=== PATIENT | male | born 1970 | race Caucasian/White ===

== ENCOUNTER → 2016-12-22 | Outpatient (CLI) | payer MEDICAID ==
[~2016-12-22] MED LIST: CIPR500T87 PO; DAPT500V6 IV; FAMO20TA7 PO; FERR325T20 PO; FOLI-17 PO; Folic Acid PO; GABA100C8 PO; HYDR-3138 PO; LEVO500T33 PO; LISI-167 PO; LISI2.5T PO; LORA1TAB PO; METF500T4 PO; METO25TA35 PO; METO50TA82 PO; METR500T4 PO; MULT-484 PO; MULT1TAB76 PO; ONDA-39 PO; POLY17PO5 PO; SUCR1TAB26 PO; SULF1TAB24 PO; THIA100T6 PO
== END | disposition home or self-care (01) ==
LOC: WOUND 08:00
PROVIDERS: ATTEND Internal Medicine
DX: E11.622 Type 2 diabetes mellitus with other skin ulcer (principal); L97.821 Non-pressure chronic ulcer of other part of left lower leg limited to breakdown of skin; I10 Essential (primary) hypertension; E11.40 Type 2 diabetes mellitus with diabetic neuropathy, unspecified; E11.22 Type 2 diabetes mellitus with diabetic chronic kidney disease; I12.9 Hypertensive chronic kidney disease with stage 1 through stage 4 chronic kidney disease, or unspecified chronic kidney disease; N18.9 Chronic kidney disease, unspecified; E11.69 Type 2 diabetes mellitus with other specified complication; M86.8X7 Other osteomyelitis, ankle and foot; K21.9 Gastro-esophageal reflux disease without esophagitis; Z87.891 Personal history of nicotine dependence; F10.10 Alcohol abuse, uncomplicated
CPT/HCPCS: 97597

== ENCOUNTER 2016-12-25 13:22 | Inpatient (IN) | payer MEDICAID ==
[~2016-12-25] VITALS: Ht 160 cm; Wt 72.4 kg
[2016-12-25] MEDS ORDERED: SODIUM CHLORIDE 0.9% 1,000 ML IV ONE (13:36)
[2016-12-25] MEDS ORDERED: SODIUM CHLORIDE FLUSH 10ML SYR IVF ONE (14:00)
[2016-12-25] MEDS ORDERED: SODIUM CHLORIDE 0.9% 1,000ML IVBOLUS ONE ×2 (14:00→15:00)
[2016-12-25 14:33] LABS: ASPARTATE AMINO TRANSFERASE 63 U/L (15-37); BLOOD UREA NITROGEN 48 mg/dL (7-18)
[2016-12-25 14:41] LABS: IS PT STATUS REG ER OR PRE ER? YES
[2016-12-25 14:46] LABS: HEMOGLOBIN 7.6 g/dL (13.7-18.0)
[2016-12-25 14:47] LABS: DIFF TOTAL CELLS COUNTED 100 CELL DIFF
[2016-12-25 14:49] LABS: ANISOCYTOSIS 1+; VERIFY COUNTS? YES
[2016-12-25 14:50] LABS: POLYCHROMASIA 1+
[2016-12-25 14:52] LABS: ECHINOCYTES 1+
[2016-12-25] MEDS ORDERED: SODIUM BICARB 8.4%, 50ML SYRINGE ONE (14:53)
[2016-12-25] MEDS ORDERED: SODIUM BICARB 8.4%, 50ML SYRINGE IVPush ONE (15:00)
[2016-12-25 15:32] LABS: PH, VENOUS 7.095 pH (7.320-7.420)
[2016-12-25] MEDS ORDERED: DOCUSATE 100 MG CAPSULE PO PRN (16:00)
[2016-12-25] MEDS ORDERED: POLYETHYLENE GLYCOL 17 GM PACKET PO PRN (16:00)
[2016-12-25] MEDS ORDERED: TEMAZEPAM 15 MG CAPSULE PO PRN (16:00)
[2016-12-25] MEDS ORDERED: ACETAMINOPHEN 325 MG TABLET PO PRN (16:00)
[2016-12-25] MEDS ORDERED: MORPHINE SULFATE 4 MG/ML, 1ML IVPush PRN (16:00)
[2016-12-25] MEDS: INSULIN REGULAR 100 UNITS/ML, 3ML VIAL SQ-INSULIN SCH ×2 (16:00→21:34)
[2016-12-25] MEDS ORDERED: ONDANSETRON 2MG/ML, 2ML IVP PRN (16:00)
[2016-12-25] MEDS: NOREPINEPHRINE 4 MG in SODIUM CHLORIDE 0.9% 246 ML IV PRN ×3 (16:41→17:21)
[2016-12-25 16:45] VITALS: BP 74/38
[2016-12-25 17:00] VITALS: BP 88/49
[2016-12-25] MEDS ORDERED: CEFAZOLIN PMX 1GM/50ML 50 ML IV ONE (17:00)
[2016-12-25] MEDS ORDERED: CEFAZOLIN PMX 1GM/50ML 50 ML ONE (17:10)
[2016-12-25 17:30] LABS: IS PT STATUS REG ER OR PRE ER? YES
[2016-12-25 18:00] VITALS: BP 97/56
[2016-12-25] MEDS: SODIUM BICARB 8.4%,50ML SYR. 150 MEQ in SODIUM CHLORIDE 0.45% 1,000 ML IV SCH (18:24)
[2016-12-25 18:26] VITALS: BP 97/49
[2016-12-25 18:44] VITALS: BP 90/47
[2016-12-25] MEDS: PIPERACILLIN/TAZO/PMX 2.25GM 50 ML IV SCH (18:48)
[2016-12-25] MEDS: HEPARIN 5,000 UNITS/ML, 1ML SQ SCH (19:38)
[2016-12-25] MEDS: LINEZOLID PMX 600MG/300ML 300 ML IV SCH (19:38)
[2016-12-25 20:02] VITALS: BP 98/45
[2016-12-25 23:42] LABS: IS PT STATUS REG ER OR PRE ER? NO
[2016-12-26] MEDS: PIPERACILLIN/TAZO/PMX 2.25GM 50 ML IV SCH ×4 (00:07→17:48)
[2016-12-26] MEDS: SODIUM BICARB 8.4%,50ML SYR. 150 MEQ in SODIUM CHLORIDE 0.45% 1,000 ML IV SCH ×2 (02:08→17:44)
[2016-12-26 04:00] VITALS: BP 107/60
[2016-12-26] MEDS: NOREPINEPHRINE 4 MG in SODIUM CHLORIDE 0.9% 246 ML IV PRN ×2 (04:23→21:13)
[2016-12-26] MEDS: HEPARIN 5,000 UNITS/ML, 1ML SQ SCH ×3 (04:24→19:45)
[2016-12-26 04:38] LABS: HEMOGLOBIN 9.3 g/dL (13.7-18.0)
[2016-12-26 04:52] LABS: BLOOD UREA NITROGEN 49 mg/dL (7-18)
[2016-12-26 04:56] LABS: ASPARTATE AMINO TRANSFERASE 96 U/L (15-37)
[2016-12-26 04:57] LABS: DIFF TOTAL CELLS COUNTED 100 CELL DIFF
[2016-12-26 05:14] LABS: ANISOCYTOSIS 1+; POIKILOCYTOSIS 1+; VERIFY COUNTS? YES
[2016-12-26 05:15] LABS: POLYCHROMASIA 1+
[2016-12-26] MEDS: LINEZOLID PMX 600MG/300ML 300 ML IV SCH ×2 (07:00→19:45)
[2016-12-26] MEDS: INSULIN REGULAR 100 UNITS/ML, 3ML VIAL SQ-INSULIN SCH ×4 (07:00→21:11)
[2016-12-26] MEDS ORDERED: CALCIUM CHLORIDE 13.6 MEQ in SODIUM CHLORIDE 0.9% 100 ML IV ONE (07:30)
[2016-12-26] MEDS: PANTOPRAZOLE 40 MG IV IVP SCH (09:00)
[2016-12-26] MEDS: LEVOTHYROXINE 100 MCG INJ IVPush SCH (09:00)
[2016-12-26 13:14] LABS: OCCBLD OBC PASS
[2016-12-26 22:32] LABS: HEMOGLOBIN 8.5 g/dL (13.7-18.0)
[2016-12-27] MEDS: PIPERACILLIN/TAZO/PMX 2.25GM 50 ML IV SCH ×4 (00:28→18:08)
[2016-12-27] MEDS: SODIUM BICARB 8.4%,50ML SYR. 150 MEQ in SODIUM CHLORIDE 0.45% 1,000 ML IV SCH ×2 (01:13→03:20)
[2016-12-27 04:00] VITALS: BP 115/73
[2016-12-27] MEDS: HEPARIN 5,000 UNITS/ML, 1ML SQ SCH ×2 (04:12→12:00)
[2016-12-27 05:42] LABS: HEMOGLOBIN 8.5 g/dL (13.7-18.0)
[2016-12-27] MEDS: LINEZOLID PMX 600MG/300ML 300 ML IV SCH ×2 (06:41→19:55)
[2016-12-27] MEDS: PANTOPRAZOLE 40 MG IV IVP SCH (07:30)
[2016-12-27] MEDS: INSULIN REGULAR 100 UNITS/ML, 3ML VIAL SQ-INSULIN SCH ×4 (07:42→19:55)
[2016-12-27 08:17] LABS: BLOOD UREA NITROGEN 19 mg/dL (7-18)
[2016-12-27 08:21] LABS: ASPARTATE AMINO TRANSFERASE 74 U/L (15-37); TOTAL IRON BINDING CAPACITY 197 mcg/dL (250-450)
[2016-12-27] MEDS ORDERED: MAGNESIUM SULFATE PMX 4GM/100M 100 ML IV ONE (09:00)
[2016-12-27] MEDS ORDERED: POTASSIUM CHLORIDE 20 MEQ TAB.ER.PRT PO ONE (09:00)
[2016-12-27] MEDS ORDERED: POTASSIUM PHOSPHATE 44 MEQ in SODIUM CHLORIDE 0.9% 500 ML IV ONE (09:00)
[2016-12-27] MEDS: SODIUM CHLORIDE 0.9% 1,000 ML IV SCH (09:10)
[2016-12-27] MEDS: LEVOTHYROXINE 100 MCG INJ IVPush SCH (09:12)
[2016-12-27] MEDS ORDERED: CHOLESTYRAMINE 4GM PACKET PO PRN (11:00)
[2016-12-27 11:49] LABS: HEMOGLOBIN 8.4 g/dL (13.7-18.0)
[2016-12-27] MEDS: PANCRELIPASE 24,000 CAPSULE.DR PO SCH (18:32)
[2016-12-27] MEDS: FAMOTIDINE 20 MG/2 ML IVPush SCH (19:58)
[2016-12-27] MEDS: CHOLESTYRAMINE 4GM PACKET PO PRN (22:34)
[2016-12-28] MEDS: SODIUM CHLORIDE 0.9% 1,000 ML IV SCH ×4 (00:14→23:46)
[2016-12-28] MEDS: PIPERACILLIN/TAZO/PMX 2.25GM 50 ML IV SCH ×5 (00:15→23:45)
[2016-12-28 05:14] LABS: HEMOGLOBIN 7.9 g/dL (13.7-18.0)
[2016-12-28 05:23] LABS: ASPARTATE AMINO TRANSFERASE 55 U/L (15-37); BLOOD UREA NITROGEN 24 mg/dL (7-18)
[2016-12-28] MEDS: LINEZOLID PMX 600MG/300ML 300 ML IV SCH (07:53)
[2016-12-28] MEDS: FAMOTIDINE 20 MG/2 ML IVPush SCH (07:53)
[2016-12-28] MEDS: PANCRELIPASE 24,000 CAPSULE.DR PO SCH ×3 (07:54→17:05)
[2016-12-28] MEDS: LEVOTHYROXINE 100 MCG INJ IVPush SCH (07:54)
[2016-12-28] MEDS: INSULIN REGULAR 100 UNITS/ML, 3ML VIAL SQ-INSULIN SCH ×4 (07:54→21:00)
[2016-12-28 11:26] LABS: HEP B SURF. AB < 3.1 mIU/mL (0.0-10.0)
[2016-12-28] MEDS: POTASSIUM CHLORIDE 20 MEQ TAB.ER.PRT PO SCH ×2 (12:18→17:05)
[2016-12-28] MEDS: NEUTRA PHOS K 250 MG TABLET PO SCH ×3 (12:18→22:50)
[2016-12-28] MEDS: CHOLESTYRAMINE 4GM PACKET PO PRN (14:03)
[2016-12-28] MEDS: OXYcodone IR 5MG TABLET PO PRN (23:42)
[2016-12-29] MEDS: PIPERACILLIN/TAZO/PMX 2.25GM 50 ML IV SCH ×3 (05:44→20:28)
[2016-12-29 06:33] LABS: ASPARTATE AMINO TRANSFERASE 47 U/L (15-37); BLOOD UREA NITROGEN 28 mg/dL (7-18)
[2016-12-29 06:49] LABS: HEMOGLOBIN 8.3 g/dL (13.7-18.0)
[2016-12-29] MEDS: INSULIN REGULAR 100 UNITS/ML, 3ML VIAL SQ-INSULIN SCH ×4 (07:00→20:37)
[2016-12-29] MEDS: NEUTRA PHOS K 250 MG TABLET PO SCH ×2 (08:40→20:34)
[2016-12-29] MEDS: LEVOTHYROXINE 100 MCG TABLET PO SCH (08:41)
[2016-12-29] MEDS: POTASSIUM CHLORIDE 20 MEQ TAB.ER.PRT PO SCH ×2 (08:41→17:31)
[2016-12-29] MEDS: PANCRELIPASE 24,000 CAPSULE.DR PO SCH ×3 (08:41→17:31)
[2016-12-29] MEDS: SODIUM CHLORIDE 0.9% 1,000 ML IV SCH (08:42)
[2016-12-29] MEDS: FAMOTIDINE 20 MG/2 ML IVPush SCH (08:42)
[2016-12-29] MEDS: SODIUM BICARBONATE 8.4% 75 MEQ in SODIUM CHLORIDE 0.45% 1,000 ML IV SCH ×2 (11:49→22:18)
[2016-12-30] MEDS: PIPERACILLIN/TAZO/PMX 2.25GM 50 ML IV SCH ×4 (01:30→20:01)
[2016-12-30 03:30] LABS: ASPARTATE AMINO TRANSFERASE 41 U/L (15-37); BLOOD UREA NITROGEN 31 mg/dL (7-18)
[2016-12-30 03:32] LABS: HEMOGLOBIN 7.8 g/dL (13.7-18.0)
[2016-12-30 04:00] VITALS: BP 105/53
[2016-12-30] MEDS: LEVOTHYROXINE 100 MCG TABLET PO SCH (06:15)
[2016-12-30] MEDS: INSULIN REGULAR 100 UNITS/ML, 3ML VIAL SQ-INSULIN SCH ×4 (06:16→21:00)
[2016-12-30] MEDS: NEUTRA PHOS K 250 MG TABLET PO SCH ×2 (08:08→20:59)
[2016-12-30] MEDS: PANCRELIPASE 24,000 CAPSULE.DR PO SCH ×3 (08:08→18:03)
[2016-12-30] MEDS: POTASSIUM CHLORIDE 20 MEQ TAB.ER.PRT PO SCH ×2 (08:09→18:03)
[2016-12-30] MEDS: FAMOTIDINE 20 MG/2 ML IVPush SCH (08:09)
[2016-12-30] MEDS: SODIUM BICARBONATE 8.4% 75 MEQ in SODIUM CHLORIDE 0.45% 1,000 ML IV SCH ×2 (09:03→21:58)
[2016-12-30] MEDS: OXYcodone IR 5MG TABLET PO PRN ×2 (09:30→15:53)
[2016-12-31] MEDS: PIPERACILLIN/TAZO/PMX 2.25GM 50 ML IV SCH ×4 (01:53→19:58)
[2016-12-31 03:37] LABS: BLOOD UREA NITROGEN 19 mg/dL (7-18)
[2016-12-31 04:00] VITALS: BP 93/66
[2016-12-31] MEDS: LEVOTHYROXINE 100 MCG TABLET PO SCH (06:37)
[2016-12-31] MEDS: INSULIN REGULAR 100 UNITS/ML, 3ML VIAL SQ-INSULIN SCH ×4 (07:00→20:32)
[2016-12-31] MEDS: PANTOPRAZOLE 40 MG IV IVP SCH (07:30)
[2016-12-31] MEDS: NEUTRA PHOS K 250 MG TABLET PO SCH ×2 (11:48→20:32)
[2016-12-31] MEDS: PANCRELIPASE 24,000 CAPSULE.DR PO SCH ×3 (11:48→17:00)
[2016-12-31] MEDS: POTASSIUM CHLORIDE 20 MEQ TAB.ER.PRT PO SCH ×2 (11:48→17:11)
[2016-12-31] MEDS: SODIUM BICARBONATE 8.4% 75 MEQ in SODIUM CHLORIDE 0.45% 1,000 ML IV SCH (19:59)
[2017-01-01] VITALS (10 sets, daily range): BP systolic 102–128; BP diastolic 64–84
[2017-01-01] MEDS: PIPERACILLIN/TAZO/PMX 2.25GM 50 ML IV SCH ×3 (02:58→15:38)
[2017-01-01 05:48] LABS: ASPARTATE AMINO TRANSFERASE 42 U/L (15-37); BLOOD UREA NITROGEN 25 mg/dL (7-18)
[2017-01-01] MEDS: INSULIN REGULAR 100 UNITS/ML, 3ML VIAL SQ-INSULIN SCH ×4 (06:15→19:59)
[2017-01-01] MEDS: LEVOTHYROXINE 100 MCG TABLET PO SCH (06:26)
[2017-01-01] MEDS: PANCRELIPASE 24,000 CAPSULE.DR PO SCH ×3 (08:00→17:00)
[2017-01-01] MEDS: PANTOPRAZOLE 40 MG IV IVP SCH (08:11)
[2017-01-01] MEDS: CHOLESTYRAMINE 4GM PACKET PO PRN (08:12)
[2017-01-01] MEDS: POTASSIUM CHLORIDE 20 MEQ TAB.ER.PRT PO SCH ×2 (08:14→18:06)
[2017-01-01] MEDS: NEUTRA PHOS K 250 MG TABLET PO SCH ×2 (08:14→23:25)
[2017-01-01 12:41] LABS: ASPARTATE AMINO TRANSFERASE 39 U/L (15-37); BLOOD UREA NITROGEN 21 mg/dL (7-18)
[2017-01-01 12:45] LABS: IS PT STATUS REG ER OR PRE ER? NO
[2017-01-01 12:51] LABS: HEMOGLOBIN 6.6 g/dL (13.7-18.0)
[2017-01-01 12:57] LABS: DIFF TOTAL CELLS COUNTED 100 CELL DIFF
[2017-01-01 12:59] LABS: ANISOCYTOSIS 1+; HYPOCHROMIA 2+; VERIFY COUNTS? YES
[2017-01-01 13:00] LABS: POIKILOCYTOSIS 2+
[2017-01-01 13:01] LABS: OVALOCYTES 1+
[2017-01-01] MEDS ORDERED: IRON DEXTRAN COMPLEX 25 MG in SODIUM CHLORIDE 0.9% 50 ML IV ONE (17:00)
[2017-01-01] MEDS ORDERED: IRON DEXTRAN IV PER PHARMACY IV PRN (17:00)
[2017-01-01] MEDS ORDERED: EPINEPHRINE 1 MG/ML, 1ML IM PRN (17:00)
[2017-01-01] MEDS ORDERED: IRON DEXTRAN COMPLEX 1,700 MG in SODIUM CHLORIDE 0.9% 250 ML IV ONE (17:30)
[2017-01-01 19:18] LABS: PROTIME 14.3 Seconds (9.6-11.5)
[2017-01-02 01:04] VITALS: BP 132/86
[2017-01-02] MEDS: LEVOTHYROXINE 100 MCG TABLET PO SCH (05:41)
[2017-01-02 06:04] LABS: BLOOD UREA NITROGEN 26 mg/dL (7-18)
[2017-01-02 06:07] LABS: HEMOGLOBIN 8.1 g/dL (13.7-18.0)
[2017-01-02 06:27] LABS: ASPARTATE AMINO TRANSFERASE 37 U/L (15-37); TOTAL IRON BINDING CAPACITY 438 mcg/dL (250-450)
[2017-01-02] MEDS: INSULIN REGULAR 100 UNITS/ML, 3ML VIAL SQ-INSULIN SCH ×4 (07:00→20:57)
[2017-01-02 07:58] VITALS: BP 117/80
[2017-01-02] MEDS: PANCRELIPASE 24,000 CAPSULE.DR PO SCH ×3 (08:00→16:45)
[2017-01-02] MEDS: POTASSIUM CHLORIDE 20 MEQ TAB.ER.PRT PO SCH ×2 (08:32→16:46)
[2017-01-02] MEDS ORDERED: FAMOTIDINE 20 MG/2 ML IVPush SCH (09:00)
[2017-01-02] MEDS: ERGOCALCIFEROL 50,000 UNIT CAPSULE PO SCH (09:59)
[2017-01-02 15:17] VITALS: BP 111/72
[2017-01-02] MEDS: OXYcodone IR 5MG TABLET PO PRN (16:51)
[2017-01-02 19:02] VITALS: BP 125/77
[2017-01-03 01:19] VITALS: BP 123/78
[2017-01-03] MEDS: LEVOTHYROXINE 100 MCG TABLET PO SCH (04:53)
[2017-01-03 05:27] LABS: HEMOGLOBIN 8.2 g/dL (13.7-18.0)
[2017-01-03 05:33] LABS: BLOOD UREA NITROGEN 29 mg/dL (7-18)
[2017-01-03 05:39] LABS: ASPARTATE AMINO TRANSFERASE 41 U/L (15-37)
[2017-01-03] MEDS: INSULIN REGULAR 100 UNITS/ML, 3ML VIAL SQ-INSULIN SCH ×4 (07:00→21:00)
[2017-01-03 07:19] VITALS: BP 121/80
[2017-01-03] MEDS: PANCRELIPASE 24,000 CAPSULE.DR PO SCH ×3 (07:58→17:42)
[2017-01-03] MEDS: POTASSIUM CHLORIDE 20 MEQ TAB.ER.PRT PO SCH ×2 (07:58→17:38)
[2017-01-03] MEDS: ALBUMIN HUMAN 25% 100 ML IV PRN (15:02)
[2017-01-03] MEDS: CHOLESTYRAMINE 4GM PACKET PO SCH ×2 (17:41→23:00)
[2017-01-03] MEDS ORDERED: LOPERAMIDE 2 MG CAPSULE PO ONE (18:00)
[2017-01-03 19:24] VITALS: BP 116/78
[2017-01-04 01:40] VITALS: BP 107/65
[2017-01-04] MEDS: CHOLESTYRAMINE 4GM PACKET PO SCH ×4 (05:00→22:46)
[2017-01-04] MEDS: LEVOTHYROXINE 100 MCG TABLET PO SCH (05:07)
[2017-01-04 05:34] LABS: HEMOGLOBIN 7.7 g/dL (13.7-18.0)
[2017-01-04 05:55] LABS: ASPARTATE AMINO TRANSFERASE 36 U/L (15-37); BLOOD UREA NITROGEN 25 mg/dL (7-18)
[2017-01-04 06:46] VITALS: BP 110/69
[2017-01-04] MEDS: INSULIN REGULAR 100 UNITS/ML, 3ML VIAL SQ-INSULIN SCH ×4 (07:00→21:00)
[2017-01-04] MEDS: PANCRELIPASE 24,000 CAPSULE.DR PO SCH ×3 (08:03→16:42)
[2017-01-04] MEDS: POTASSIUM CHLORIDE 20 MEQ TAB.ER.PRT PO SCH ×2 (08:03→16:40)
[2017-01-04] MEDS ORDERED: LORazepam 2 MG/ML, 1ML IVPush ONE (10:30)
[2017-01-04] MEDS: CIMETIDINE 200 MG TABLET PO SCH ×2 (11:12→22:46)
[2017-01-04 19:40] VITALS: BP 111/70
[2017-01-05 01:38] VITALS: BP 100/66
[2017-01-05] MEDS: LEVOTHYROXINE 100 MCG TABLET PO SCH (04:38)
[2017-01-05] MEDS: CHOLESTYRAMINE 4GM PACKET PO SCH ×4 (04:38→23:00)
[2017-01-05 05:05] LABS: HEMOGLOBIN 7.4 g/dL (13.7-18.0)
[2017-01-05 05:12] LABS: BLOOD UREA NITROGEN 25 mg/dL (7-18)
[2017-01-05] MEDS: INSULIN REGULAR 100 UNITS/ML, 3ML VIAL SQ-INSULIN SCH ×4 (07:00→21:00)
[2017-01-05 07:27] VITALS: BP 113/70
[2017-01-05] MEDS: PANCRELIPASE 24,000 CAPSULE.DR PO SCH ×3 (08:00→17:00)
[2017-01-05] MEDS: POTASSIUM CHLORIDE 20 MEQ TAB.ER.PRT PO SCH ×2 (09:29→17:03)
[2017-01-05 12:12] LABS: CREATININE CLEARANCE,URINE 4.5 (70.0-140.0)
[2017-01-05] MEDS: FUROSEMIDE 40 MG TABLET PO SCH (17:03)
[2017-01-05] MEDS: LORazepam 2 MG/ML, 1ML IVPush PRN (20:17)
[2017-01-05] MEDS: OXYcodone IR 5MG TABLET PO PRN (20:22)
[2017-01-05] MEDS: ALBUMIN HUMAN 25% 100 ML IV PRN ×2 (20:46→21:37)
[2017-01-05] MEDS: SODIUM BICARBONATE 650 MG TABLET PO SCH (23:32)
[2017-01-06] VITALS (9 sets, daily range): BP systolic 109–133; BP diastolic 66–86
[2017-01-06 04:10] LABS: HEMOGLOBIN 6.9 g/dL (13.7-18.0)
[2017-01-06 04:19] LABS: BLOOD UREA NITROGEN 17 mg/dL (7-18)
[2017-01-06] MEDS: CHOLESTYRAMINE 4GM PACKET PO SCH ×4 (05:00→23:00)
[2017-01-06] MEDS: LEVOTHYROXINE 100 MCG TABLET PO SCH (05:56)
[2017-01-06] MEDS: INSULIN REGULAR 100 UNITS/ML, 3ML VIAL SQ-INSULIN SCH ×4 (07:00→20:47)
[2017-01-06] MEDS: PANCRELIPASE 24,000 CAPSULE.DR PO SCH ×3 (08:00→16:35)
[2017-01-06] MEDS: POTASSIUM CHLORIDE 20 MEQ TAB.ER.PRT PO SCH ×2 (08:28→16:35)
[2017-01-06] MEDS: FUROSEMIDE 40 MG TABLET PO SCH ×2 (08:28→16:35)
[2017-01-06] MEDS: SODIUM BICARBONATE 650 MG TABLET PO SCH ×2 (08:28→20:53)
[2017-01-06] MEDS ORDERED: ALPRazolam 1MG TABLET PO PRN ×2 (12:00)
[2017-01-07] MEDS: CHOLESTYRAMINE 4GM PACKET PO SCH ×4 (05:00→23:02)
[2017-01-07] MEDS: LEVOTHYROXINE 100 MCG TABLET PO SCH (06:12)
[2017-01-07 06:14] VITALS: BP 118/76
[2017-01-07 06:21] LABS: HEMOGLOBIN 8.4 g/dL (13.7-18.0)
[2017-01-07 06:31] LABS: BLOOD UREA NITROGEN 21 mg/dL (7-18)
[2017-01-07] MEDS ORDERED: HEPARIN 1,000 UNITS/ML, 10ML ONE (06:36)
[2017-01-07] MEDS ORDERED: BUPIVACAINE/PF-EPI 0.5% 1:200K ONE (06:37)
[2017-01-07] MEDS ORDERED: FENTANYL PF 100 MCG/2ML ONE (06:53)
[2017-01-07] MEDS ORDERED: PROPOFOL 10 MG/ML, 20ML ONE (06:59)
[2017-01-07] MEDS ORDERED: ONDANSETRON 2MG/ML, 2ML ONE (06:59)
[2017-01-07] MEDS ORDERED: PHENYLEPHRINE 10 MG/ML ONE (06:59)
[2017-01-07] MEDS ORDERED: DEXAMETHASONE 4 MG/ML, 1ML ONE (06:59)
[2017-01-07] MEDS ORDERED: HEPARIN 1,000 UNITS/ML, 10ML IV ONE (07:00)
[2017-01-07] MEDS ORDERED: BUPIVACAINE/PF-EPI 0.5% 1:200K INFIL ONE (07:00)
[2017-01-07] MEDS: INSULIN REGULAR 100 UNITS/ML, 3ML VIAL SQ-INSULIN SCH ×4 (07:00→23:01)
[2017-01-07] MEDS ORDERED: OXYcodone 5 MG/5 ML ORAL.SOL UDC PO PRN (07:30)
[2017-01-07] MEDS ORDERED: hydrALAzine 20 MG/ML, 1ML IV PRN (07:30)
[2017-01-07] MEDS ORDERED: FENTANYL PF 100 MCG/2ML IV PRN (07:30)
[2017-01-07] MEDS ORDERED: HYDROmorphone 1 MG/ML, 1ML IV PRN (07:30)
[2017-01-07] MEDS ORDERED: PROMETHAZINE 25 MG/ML, 1ML IV PRN (07:30)
[2017-01-07] MEDS ORDERED: ALBUTEROL SULFATE 2.5 MG/3 ML NPPB PRN (07:30)
[2017-01-07] MEDS ORDERED: LABETALOL 5MG/ML, 20ML IV PRN (07:30)
[2017-01-07] MEDS ORDERED: ONDANSETRON 2MG/ML, 2ML IVPush PRN (07:30)
[2017-01-07] MEDS: PANCRELIPASE 24,000 CAPSULE.DR PO SCH ×3 (08:00→16:18)
[2017-01-07] MEDS: FUROSEMIDE 40 MG TABLET PO SCH ×2 (10:45→16:18)
[2017-01-07] MEDS: POTASSIUM CHLORIDE 20 MEQ TAB.ER.PRT PO SCH ×2 (10:45→16:18)
[2017-01-07] MEDS ORDERED: [UNRECOGNIZED DRUG - REMARK] MC PRN (11:00)
[2017-01-07] MEDS ORDERED: DIPHENHYDRAMINE 25 MG CAPSULE PO PRN (11:00)
[2017-01-07 12:34] VITALS: BP 122/84
[2017-01-07] MEDS: DIPHENHYDRAMINE 25 MG CAPSULE PO PRN ×2 (14:23→23:41)
[2017-01-07] MEDS: OXYcodone IR 5MG TABLET PO PRN (15:13)
[2017-01-07] MEDS: LORazepam 2 MG/ML, 1ML IVPush PRN (16:17)
[2017-01-07] MEDS ORDERED: CATHFLO-ALTEPLASE 2 MG/2 ML CATHFLUSH ONE (18:30)
[2017-01-07 20:17] VITALS: BP 124/83
[2017-01-07] MEDS: SODIUM BICARBONATE 650 MG TABLET PO SCH (23:02)
[2017-01-08 00:18] VITALS: BP 126/81
[2017-01-08] MEDS: CHOLESTYRAMINE 4GM PACKET PO SCH ×4 (05:00→22:17)
[2017-01-08] MEDS: LEVOTHYROXINE 100 MCG TABLET PO SCH (05:22)
[2017-01-08 06:10] LABS: ASPARTATE AMINO TRANSFERASE 34 U/L (15-37); BLOOD UREA NITROGEN 14 mg/dL (7-18)
[2017-01-08 06:28] LABS: HEMOGLOBIN 8.3 g/dL (13.7-18.0)
[2017-01-08] MEDS: INSULIN REGULAR 100 UNITS/ML, 3ML VIAL SQ-INSULIN SCH ×4 (07:00→22:18)
[2017-01-08 07:28] VITALS: BP_SYST 120; BP_SYST 130; BP_DIAS 76
[2017-01-08] MEDS: FUROSEMIDE 40 MG TABLET PO SCH ×2 (08:00→17:00)
[2017-01-08] MEDS: PANCRELIPASE 24,000 CAPSULE.DR PO SCH ×3 (08:00→17:00)
[2017-01-08] MEDS: POTASSIUM CHLORIDE 20 MEQ TAB.ER.PRT PO SCH ×2 (10:12→17:13)
[2017-01-08] MEDS: SODIUM BICARBONATE 650 MG TABLET PO SCH ×2 (10:12→22:18)
[2017-01-08] MEDS: IRON SUCROSE COMPLEX 100MG/5ML IV SCH (10:12)
[2017-01-08] MEDS: DIPHENHYDRAMINE 25 MG CAPSULE PO PRN ×3 (10:12→22:16)
[2017-01-08 10:37] LABS: HEPATITIS C VIRUS ANTIBODY Nonreactive (Nonreactive)
[2017-01-08] MEDS: LORazepam 2 MG/ML, 1ML IVPush PRN (13:06)
[2017-01-08] MEDS: ALBUMIN HUMAN 25% 100 ML IV PRN (14:33)
[2017-01-08] MEDS: DIPHENOXYLATE/ATROPINE TABLET PO PRN (17:13)
[2017-01-08 19:19] VITALS: BP 104/62
[2017-01-09 03:22] VITALS: BP 117/65
[2017-01-09 03:48] LABS: BLOOD UREA NITROGEN 8 mg/dL (7-18)
[2017-01-09 03:54] LABS: HEMOGLOBIN 7.4 g/dL (13.7-18.0)
[2017-01-09] MEDS: CHOLESTYRAMINE 4GM PACKET PO SCH ×4 (05:24→23:21)
[2017-01-09] MEDS: LEVOTHYROXINE 100 MCG TABLET PO SCH (05:24)
[2017-01-09] MEDS: INSULIN REGULAR 100 UNITS/ML, 3ML VIAL SQ-INSULIN SCH ×4 (07:00→20:48)
[2017-01-09] MEDS: FUROSEMIDE 40 MG TABLET PO SCH ×2 (07:57→16:49)
[2017-01-09] MEDS: SODIUM BICARBONATE 650 MG TABLET PO SCH ×2 (07:57→21:11)
[2017-01-09] MEDS: PANCRELIPASE 24,000 CAPSULE.DR PO SCH ×3 (07:57→16:49)
[2017-01-09] MEDS: ERGOCALCIFEROL 50,000 UNIT CAPSULE PO SCH (07:58)
[2017-01-09] MEDS: POTASSIUM CHLORIDE 20 MEQ TAB.ER.PRT PO SCH ×2 (07:58→16:49)
[2017-01-09] MEDS: IRON SUCROSE COMPLEX 100MG/5ML IV SCH (07:59)
[2017-01-09] MEDS: OXYcodone IR 5MG TABLET PO PRN (08:08)
[2017-01-09 08:22] VITALS: BP 124/74
[2017-01-09 13:53] VITALS: BP 116/76
[2017-01-09] MEDS: DIPHENHYDRAMINE 25 MG CAPSULE PO PRN (17:23)
[2017-01-09 19:50] VITALS: BP 131/78
[2017-01-10] MEDS: DIPHENOXYLATE/ATROPINE TABLET PO PRN (00:20)
[2017-01-10] MEDS: DIPHENHYDRAMINE 25 MG CAPSULE PO PRN (00:20)
[2017-01-10] MEDS: LEVOTHYROXINE 100 MCG TABLET PO SCH (04:36)
[2017-01-10] MEDS: CHOLESTYRAMINE 4GM PACKET PO SCH (04:36)
[2017-01-10 04:38] VITALS: BP 120/78
[2017-01-10 06:00] LABS: BLOOD UREA NITROGEN 14 mg/dL (7-18)
[2017-01-10 06:03] LABS: HEMOGLOBIN 7.4 g/dL (13.7-18.0)
[2017-01-10] MEDS: INSULIN REGULAR 100 UNITS/ML, 3ML VIAL SQ-INSULIN SCH ×2 (07:00→11:00)
[2017-01-10 07:32] VITALS: BP 120/72
[2017-01-10] MEDS: FUROSEMIDE 40 MG TABLET PO SCH ×2 (08:00→17:00)
[2017-01-10] MEDS: PANCRELIPASE 24,000 CAPSULE.DR PO SCH ×3 (08:00→17:00)
[2017-01-10] MEDS: SODIUM BICARBONATE 650 MG TABLET PO SCH ×2 (08:03→21:00)
[2017-01-10] MEDS: POTASSIUM CHLORIDE 20 MEQ TAB.ER.PRT PO SCH ×2 (08:03→17:34)
[2017-01-10] MEDS: IRON SUCROSE COMPLEX 100MG/5ML IV SCH (08:05)
[2017-01-10] MEDS ORDERED: DIPHENOXYLATE/ATROPINE TABLET PO SCH (10:00)
[2017-01-10] MEDS ORDERED: MORPHINE SULFATE 4 MG/ML, 1ML IVPush PRN (10:00)
[2017-01-10] MEDS: DIPHENOXYLATE/ATROPINE TABLET PO SCH ×3 (12:08→21:00)
[2017-01-10 14:10] VITALS: BP 132/85
[2017-01-10 19:17] VITALS: BP 137/83
[2017-01-11 00:45] VITALS: BP 116/71
[2017-01-11] MEDS: LEVOTHYROXINE 100 MCG TABLET PO SCH (05:16)
[2017-01-11 07:35] VITALS: BP 113/70
[2017-01-11] MEDS: PANCRELIPASE 24,000 CAPSULE.DR PO SCH ×3 (08:00→17:00)
[2017-01-11] MEDS: FUROSEMIDE 40 MG TABLET PO SCH ×2 (08:00→17:00)
[2017-01-11] MEDS: SODIUM BICARBONATE 650 MG TABLET PO SCH ×2 (09:18→21:12)
[2017-01-11] MEDS: POTASSIUM CHLORIDE 20 MEQ TAB.ER.PRT PO SCH ×2 (09:18→18:13)
[2017-01-11] MEDS: DIPHENOXYLATE/ATROPINE TABLET PO SCH ×3 (09:18→21:13)
[2017-01-11 12:35] VITALS: BP 121/82
[2017-01-11] MEDS: DIPHENHYDRAMINE 25 MG CAPSULE PO PRN (13:06)
[2017-01-11] MEDS: ALBUMIN HUMAN 25% 100 ML IV PRN (13:24)
[2017-01-11] MEDS: ALBUMIN HUMAN 25% 50 ML IV PRN ×2 (14:20→15:35)
[2017-01-11 18:44] VITALS: BP 97/53
[2017-01-12 02:26] VITALS: BP 104/64
[2017-01-12] MEDS: DIPHENHYDRAMINE 25 MG CAPSULE PO PRN ×3 (02:36→21:00)
[2017-01-12 03:40] LABS: ASPARTATE AMINO TRANSFERASE 43 U/L (15-37); BLOOD UREA NITROGEN 10 mg/dL (7-18)
[2017-01-12 03:46] LABS: HEMOGLOBIN 7.3 g/dL (13.7-18.0)
[2017-01-12 07:50] VITALS: BP 101/61
[2017-01-12] MEDS: PANCRELIPASE 24,000 CAPSULE.DR PO SCH ×3 (08:00→17:00)
[2017-01-12] MEDS: FUROSEMIDE 40 MG TABLET PO SCH ×2 (08:00→17:00)
[2017-01-12] MEDS: LEVOTHYROXINE 100 MCG TABLET PO SCH (09:54)
[2017-01-12] MEDS: DIPHENOXYLATE/ATROPINE TABLET PO SCH ×3 (09:54→21:01)
[2017-01-12] MEDS: POTASSIUM CHLORIDE 20 MEQ TAB.ER.PRT PO SCH (09:54)
[2017-01-12] MEDS: SODIUM BICARBONATE 650 MG TABLET PO SCH ×2 (09:55→21:01)
[2017-01-12 14:45] VITALS: BP 129/78
[2017-01-12 20:32] VITALS: BP 127/83
[2017-01-13 02:04] VITALS: BP 125/80
[2017-01-13] MEDS: LEVOTHYROXINE 100 MCG TABLET PO SCH (05:31)
[2017-01-13 05:55] LABS: HEMOGLOBIN 7.4 g/dL (13.7-18.0)
[2017-01-13 06:05] LABS: BLOOD UREA NITROGEN 16 mg/dL (7-18)
[2017-01-13 06:24] LABS: DIFF TOTAL CELLS COUNTED 100 CELL DIFF
[2017-01-13 06:30] LABS: ANISOCYTOSIS 2+; HYPOCHROMIA 1+; OVALOCYTES 1+; POIKILOCYTOSIS 1+; VERIFY COUNTS? YES
[2017-01-13] MEDS: PANCRELIPASE 24,000 CAPSULE.DR PO SCH ×2 (08:00→12:00)
[2017-01-13] MEDS: FUROSEMIDE 40 MG TABLET PO SCH (08:57)
[2017-01-13] MEDS: DIPHENOXYLATE/ATROPINE TABLET PO SCH (08:57)
[2017-01-13] MEDS: SODIUM BICARBONATE 650 MG TABLET PO SCH (08:58)
[2017-01-13 09:31] VITALS: BP 108/70
[2017-01-13] MEDS: DIPHENHYDRAMINE 25 MG CAPSULE PO PRN (12:02)
[2017-01-13 12:40] VITALS: BP 124/77
[2017-01-13] MEDS ORDERED: ERGO500017 PO (16:28)
[2017-01-13] MEDS ORDERED: SODI650T PO (16:28)
[2017-01-13] MEDS ORDERED: FURO40TA6 PO (16:28)
[2017-01-13] MEDS ORDERED: LIPA1CAP6 PO (16:28)
[2017-01-13] MEDS ORDERED: LEVO100T PO (16:28)
== END 2017-01-13 17:53 | disposition home or self-care (01) | DRG 871 ==
LOC: ED 15:59 → EDIP 16:01 → ED 16:10 → CCU 17:36 → 4WST 01-01 10:03
PROVIDERS: ADMIT Internal Medicine; ATTEND Internal Medicine
PROC: 30233N1 Transfusion of Nonautologous Red Blood Cells into Peripheral Vein, Percutaneous Approach (ICD-10-PCS; 2016-12-25)
PROC: 02HV33Z Insertion of Infusion Device into Superior Vena Cava, Percutaneous Approach (ICD-10-PCS; 2016-12-25)
PROC: B548ZZA Ultrasonography of Superior Vena Cava, Guidance (ICD-10-PCS; 2016-12-25)
PROC: 02HV33Z Insertion of Infusion Device into Superior Vena Cava, Percutaneous Approach (ICD-10-PCS; principal; 2016-12-26)
PROC: B5181ZA Fluoroscopy of Superior Vena Cava using Low Osmolar Contrast, Guidance (ICD-10-PCS; 2016-12-26)
PROC: B548ZZA Ultrasonography of Superior Vena Cava, Guidance (ICD-10-PCS; 2016-12-26)
PROC: 0T9B70Z Drainage of Bladder with Drainage Device, Via Natural or Artificial Opening (ICD-10-PCS; 2016-12-26)
PROC: 5A1D60Z (ICD-10-PCS; 2016-12-30)
PROC: 30233R1 Transfusion of Nonautologous Platelets into Peripheral Vein, Percutaneous Approach (ICD-10-PCS; 2017-01-01)
PROC: 02HV33Z Insertion of Infusion Device into Superior Vena Cava, Percutaneous Approach (ICD-10-PCS; 2017-01-07)
PROC: B5181ZA Fluoroscopy of Superior Vena Cava using Low Osmolar Contrast, Guidance (ICD-10-PCS; 2017-01-07)
PROC: B548ZZA Ultrasonography of Superior Vena Cava, Guidance (ICD-10-PCS; 2017-01-07)
DX: A41.9 Sepsis, unspecified organism (principal); R65.21 Severe sepsis with septic shock; E43 Unspecified severe protein-calorie malnutrition; N17.0 Acute kidney failure with tubular necrosis; N18.6 End stage renal disease; D68.9 Coagulation defect, unspecified; E87.1 Hypo-osmolality and hyponatremia; N39.0 Urinary tract infection, site not specified; L97.929 Non-pressure chronic ulcer of unspecified part of left lower leg with unspecified severity; I12.0 Hypertensive chronic kidney disease with stage 5 chronic kidney disease or end stage renal disease; B96.20 Unspecified Escherichia coli [E. coli] as the cause of diseases classified elsewhere; D63.8 Anemia in other chronic diseases classified elsewhere; D50.9 Iron deficiency anemia, unspecified; K21.9 Gastro-esophageal reflux disease without esophagitis; D69.6 Thrombocytopenia, unspecified; E11.65 Type 2 diabetes mellitus with hyperglycemia; E11.22 Type 2 diabetes mellitus with diabetic chronic kidney disease; E11.42 Type 2 diabetes mellitus with diabetic polyneuropathy; E86.0 Dehydration; E86.1 Hypovolemia; E87.5 Hyperkalemia; E83.39 Other disorders of phosphorus metabolism; E83.42 Hypomagnesemia; E87.6 Hypokalemia; E03.9 Hypothyroidism, unspecified; F10.20 Alcohol dependence, uncomplicated; F41.9 Anxiety disorder, unspecified; K74.60 Unspecified cirrhosis of liver; K72.90 Hepatic failure, unspecified without coma; L29.9 Pruritus, unspecified; F41.0 Panic disorder [episodic paroxysmal anxiety]; R16.1 Splenomegaly, not elsewhere classified; T68.XXXA Hypothermia, initial encounter; K70.10 Alcoholic hepatitis without ascites; R29.6 Repeated falls; N50.89 Other specified disorders of the male genital organs; T38.3X5A Adverse effect of insulin and oral hypoglycemic [antidiabetic] drugs, initial encounter; Y92.89 Other specified places as the place of occurrence of the external cause; Z87.01 Personal history of pneumonia (recurrent); Z99.2 Dependence on renal dialysis; Z89.512 Acquired absence of left leg below knee; Z89.431 Acquired absence of right foot; Z86.14 Personal history of Methicillin resistant Staphylococcus aureus infection; Z91.19 Patient's noncompliance with other medical treatment and regimen; Z72.0 Tobacco use; Z71.41 Alcohol abuse counseling and surveillance of alcoholic; Z79.899 Other long term (current) drug therapy; Z79.84 Long term (current) use of oral hypoglycemic drugs; Z83.3 Family history of diabetes mellitus; Z82.49 Family history of ischemic heart disease and other diseases of the circulatory system; Z68.28 Body mass index [BMI] 28.0-28.9, adult
CPT/HCPCS: 36415; 36556; 71010; 74000; 76937; 77001; 80048; 80053; 80069; 80074; 81001; 81050; 82010; 82272; 82306; 82436; 82533; 82550; 82570; 82575; 82705; 82728; 82803; 82962; 83540; 83550; 83605; 83735; 83970; 84100; 84132; 84133; 84156; 84300; 84439; 84443; 84481; 84484; 84550; 85014; 85018; 85025; 85049; 85379; 85384; 85610; 85730; 86022; 86480; 86704; 86706; 86850; 86900; 86923; 87040; 87077; 87081; 87086; 87186; 87324; 87340; 93005; 96361; 96374; J0690; J1100; J1644; J1750; J1756; J1815; J2020; J2405; J2543; J2704; J2997; J3010; P9047; C1751; C9113; J1642; J2060; J2370; J3475; J7030; J7040; J7050; P9016; P9035; Q0163; S0028

== ENCOUNTER → 2016-12-29 | Outpatient (CLI) | payer MEDICAID ==
[~2016-12-29] MED LIST changes: +ASPI500T4 PO; +ATOR80TA75 PO; +ERGO500017 PO; +FURO40TA6 PO; +GABA-826 PO; -GABA100C8 PO; +GABAPENTIN; +LEVO100T PO; +LIPA1CAP61 PO; +METF500T27 PO; +SODI650T PO; +SUCRALFATE
== END ==
LOC: WOUND 07:59
PROVIDERS: ATTEND Internal Medicine
DX: Z02.9 Encounter for administrative examinations, unspecified (principal)

== ENCOUNTER 2017-01-18 16:47 | Inpatient (IN) | payer MEDICAID ==
[~2017-01-18] VITALS: Ht 165.1 cm; Wt 92.3 kg
[~2017-01-18 16:47] MED LIST changes: -ASPI500T4 PO; -ATOR80TA75 PO; -GABA-826 PO; +GABA100C8 PO; -GABAPENTIN; +LIPA1CAP6 PO; -LIPA1CAP61 PO; -METF500T27 PO; -SUCRALFATE
[2017-01-18] MEDS ORDERED: SODIUM CHLORIDE 0.9%, 500ML IVBOLUS ONE ×2 (17:00→18:00)
[2017-01-18] MEDS ORDERED: ACETAMINOPHEN 500 MG TABLET PO ONE (17:00)
[2017-01-18] MEDS ORDERED: SODIUM CHLORIDE FLUSH 10ML SYR IVF ONE (17:00)
[2017-01-18] MEDS ORDERED: ACETAMINOPHEN 500 MG TABLET ONE (17:20)
[2017-01-18] MEDS ORDERED: SUCRALFATE (17:21)
[2017-01-18] MEDS ORDERED: GABAPENTIN (17:21)
[2017-01-18] MEDS ORDERED: METO50TA82 PO (17:21)
[2017-01-18] MEDS ORDERED: METF500T27 PO (17:21)
[2017-01-18] MEDS ORDERED: GABA100C8 PO (17:21)
[2017-01-18] MEDS ORDERED: ATOR80TA75 PO (17:21)
[2017-01-18] MEDS ORDERED: LISI-167 PO (17:21)
[2017-01-18] MEDS ORDERED: ASPI500T4 PO (17:22)
[2017-01-18] MEDS ORDERED: AMPICILLIN/SULBACTAM 3 GM in SODIUM CHLORIDE 0.9% 100 ML IV ONE (17:30)
[2017-01-18 17:33] LABS: ABG COLLECTION SITE LEFT RADIAL; COLLATERAL CIRCULATION TESTING NORMAL
[2017-01-18 17:47] LABS: ASPARTATE AMINO TRANSFERASE 170 U/L (15-37); BLOOD UREA NITROGEN 25 mg/dL (7-18)
[2017-01-18 17:51] LABS: IS PT STATUS REG ER OR PRE ER? YES
[2017-01-18 17:58] LABS: DIFF TOTAL CELLS COUNTED 100 CELL DIFF
[2017-01-18 18:02] LABS: ANISOCYTOSIS 2+; VERIFY COUNTS? YES
[2017-01-18] MEDS ORDERED: NOREPINEPHRINE 4 MG in SODIUM CHLORIDE 0.9% 246 ML IV STA (18:03)
[2017-01-18 18:04] LABS: SCHISTOCYTES 1+; SPHEROCYTES 1+
[2017-01-18] MEDS: NOREPINEPHRINE 4 MG in SODIUM CHLORIDE 0.9% 246 ML IV PRN ×3 (18:18→23:47)
[2017-01-18] MEDS ORDERED: PHARMACOKINETIC CONSULTATION MC ONE ×3 (18:30→20:30)
[2017-01-18] MEDS ORDERED: PHARMACOKINETIC MONITORING MC PRN ×2 (18:30→20:00)
[2017-01-18] MEDS ORDERED: VANCOMYCIN PMX 1GM/200ML 200 ML IV ONE ×2 (18:30→19:30)
[2017-01-18] MEDS ORDERED: VANCOMYCIN PER PHARMACY MC PRN ×2 (18:30→19:30)
[2017-01-18] MEDS ORDERED: SODIUM CHLORIDE 0.9% 1,000ML IVBOLUS ONE ×2 (19:00→22:30)
[2017-01-18] MEDS ORDERED: POLYETHYLENE GLYCOL 17 GM PACKET PO PRN (19:30)
[2017-01-18] MEDS ORDERED: BISACODYL 10 MG SUPP PR PRN (19:30)
[2017-01-18] MEDS ORDERED: OXYcodone IR 5MG TABLET PO PRN (19:30)
[2017-01-18] MEDS ORDERED: ONDANSETRON 2MG/ML, 2ML IVP PRN (19:30)
[2017-01-18] MEDS ORDERED: PIPERACILLIN/TAZO/PMX 2.25GM 50 ML IV SCH (19:30)
[2017-01-18] MEDS ORDERED: DOCUSATE 100 MG CAPSULE PO PRN (19:30)
[2017-01-18] MEDS ORDERED: ONDANSETRON 4 MG TABLET PO PRN (20:00)
[2017-01-18] MEDS: GABAPENTIN 100 MG CAPSULE PO SCH (20:31)
[2017-01-18] MEDS: SODIUM BICARBONATE 650 MG TABLET PO SCH (20:32)
[2017-01-18] MEDS: LORazepam 1MG TABLET PO PRN (21:17)
[2017-01-18] MEDS: PIPERACILLIN/TAZO/PMX 2.25GM 50 ML IV SCH (21:17)
[2017-01-18] MEDS: MORPHINE SULFATE 4 MG/ML, 1ML IVPush PRN (21:18)
[2017-01-18] MEDS: ATORVASTATIN 80 MG TABLET PO SCH (23:47)
[2017-01-19] MEDS ORDERED: PROPOFOL 10 MG/ML, 100ML IV ONE
[2017-01-19] MEDS ORDERED: MIDAZOLAM 1 MG/ML, 5ML ONE
[2017-01-19] MEDS ORDERED: ETOMIDATE 40 MG/20 ML ONE
[2017-01-19 02:12] LABS: IS PT STATUS REG ER OR PRE ER? NO
[2017-01-19] MEDS: ALBUTEROL/IPRATROPIUM 2.5MG/0.5MG, 3 ML NPPB SCH ×6 (02:30→21:57)
[2017-01-19] MEDS ORDERED: ALBUTEROL/IPRATROPIUM 2.5MG/0.5MG, 3 ML NPPB PRN (02:30)
[2017-01-19] MEDS ORDERED: PHENYLEPHRINE 10 MG in SODIUM CHLORIDE 0.9% 249 ML IV PRN ×2 (02:30→12:30)
[2017-01-19 02:43] LABS: BLOOD UREA NITROGEN 27 mg/dL (7-18)
[2017-01-19] MEDS ORDERED: ALBUTEROL/IPRATROPIUM 2.5MG/0.5MG, 3 ML INLINE PRN (03:00)
[2017-01-19] MEDS ORDERED: LACTULOSE 20 GM/30 ML UDC NG PRN (03:00)
[2017-01-19] MEDS ORDERED: ETOMIDATE 20 MG/10 ML IVPush ONE (03:00)
[2017-01-19] MEDS ORDERED: DEXTROSE 50%, 50ML SYRINGE IVPush PRN (03:00)
[2017-01-19] MEDS ORDERED: PHARMACY MAY ADJ FOR RENAL FX MC SCH (03:00)
[2017-01-19] MEDS ORDERED: GLUCAGON 1 MG IM PRN (03:00)
[2017-01-19] MEDS ORDERED: MIDAZOLAM 1 MG/ML, 5ML IVPush ONE (03:00)
[2017-01-19] MEDS: SODIUM CHLORIDE 0.9% 1,000 ML IV SCH ×2 (03:07→23:07)
[2017-01-19] MEDS ORDERED: SODIUM BICARBONATE 1 MEQ/ML, 50ML VIAL IVPush ONE (03:30)
[2017-01-19 04:35] LABS: BLOOD UREA NITROGEN 28 mg/dL (7-18)
[2017-01-19 04:40] LABS: ASPARTATE AMINO TRANSFERASE 149 U/L (15-37)
[2017-01-19 04:52] LABS: DIFF TOTAL CELLS COUNTED 100 CELL DIFF
[2017-01-19 04:55] LABS: ANISOCYTOSIS 1+; VERIFY COUNTS? YES
[2017-01-19 04:56] LABS: OVALOCYTES 1+; POIKILOCYTOSIS 1+; SCHISTOCYTES 1+
[2017-01-19] MEDS: PROPOFOL 100 ML IV PRN ×3 (05:49→23:06)
[2017-01-19] MEDS: LEVOTHYROXINE 100 MCG TABLET PO SCH (05:57)
[2017-01-19 06:06] LABS: ABG COLLECTION SITE RIGHT RADIAL; COLLATERAL CIRCULATION TESTING NORMAL
[2017-01-19] MEDS: NOREPINEPHRINE 4 MG in SODIUM CHLORIDE 0.9% 246 ML IV PRN (06:16)
[2017-01-19] MEDS ORDERED: FERROUS SULFATE 325 MG TABLET PO SCH (08:00)
[2017-01-19 08:19] LABS: IS PT STATUS REG ER OR PRE ER? NO
[2017-01-19] MEDS: PIPERACILLIN/TAZO/PMX 2.25GM 50 ML IV SCH ×2 (09:07→20:35)
[2017-01-19] MEDS: PANTOPRAZOLE 40 MG IV IVP SCH (09:07)
[2017-01-19] MEDS: FOLIC ACID 1 MG TABLET PO SCH (09:07)
[2017-01-19] MEDS: FERROUS SULFATE 220 MG/5 ML ORAL SOL PO SCH ×3 (09:07→17:51)
[2017-01-19] MEDS: THIAMINE 100MG TABLET PO SCH (09:08)
[2017-01-19] MEDS: SODIUM CHLORIDE FLUSH 10ML SYR IVF SCH ×2 (09:08→20:35)
[2017-01-19] MEDS: SODIUM BICARBONATE 650 MG TABLET PO SCH ×2 (09:08→20:36)
[2017-01-19] MEDS: GABAPENTIN 100 MG CAPSULE PO SCH ×3 (09:08→20:36)
[2017-01-19] MEDS: PANCRELIPASE 24,000 CAPSULE.DR PO SCH ×3 (09:08→17:51)
[2017-01-19] MEDS: MULTIVITS,STRESS FORMULA 1 TABLET PO SCH (09:08)
[2017-01-19] MEDS: PHENYLEPHRINE 20 MG in SODIUM CHLORIDE 0.9% 248 ML IV PRN (10:02)
[2017-01-19] MEDS: NOREPINEPHRINE 8 MG in SODIUM CHLORIDE 0.9% 242 ML IV PRN ×2 (12:41→20:34)
[2017-01-19] MEDS: DARBEPOETIN 100 MCG/ML SQ SCH (12:45)
[2017-01-19] MEDS: ATORVASTATIN 80 MG TABLET PO SCH (20:36)
[2017-01-19] MEDS: MORPHINE SULFATE 4 MG/ML, 1ML IVPush PRN (21:04)
[2017-01-20] MEDS: ALBUTEROL/IPRATROPIUM 2.5MG/0.5MG, 3 ML NPPB SCH ×6 (02:44→22:00)
[2017-01-20 04:30] LABS: ABG COLLECTION SITE RIGHT RADIAL; COLLATERAL CIRCULATION TESTING NORMAL
[2017-01-20 05:19] LABS: BLOOD UREA NITROGEN 15 mg/dL (7-18)
[2017-01-20] MEDS: LEVOTHYROXINE 100 MCG TABLET PO SCH (06:11)
[2017-01-20 06:36] LABS: DIFF TOTAL CELLS COUNTED 100 CELL DIFF
[2017-01-20 06:39] LABS: ANISOCYTOSIS 1+; OVALOCYTES 1+; POIKILOCYTOSIS 1+; POLYCHROMASIA 1+; VERIFY COUNTS? YES
[2017-01-20 06:40] LABS: SCHISTOCYTES 1+
[2017-01-20] MEDS: NOREPINEPHRINE 8 MG in SODIUM CHLORIDE 0.9% 242 ML IV PRN ×2 (06:49→20:09)
[2017-01-20] MEDS: PANCRELIPASE 24,000 CAPSULE.DR PO SCH ×3 (08:00→16:08)
[2017-01-20] MEDS: THIAMINE 100MG TABLET PO SCH (08:52)
[2017-01-20] MEDS: PANTOPRAZOLE 40 MG IV IVP SCH (08:52)
[2017-01-20] MEDS: FERROUS SULFATE 220 MG/5 ML ORAL SOL PO SCH ×3 (08:52→16:08)
[2017-01-20] MEDS: FOLIC ACID 1 MG TABLET PO SCH (08:53)
[2017-01-20] MEDS: MULTIVITS,STRESS FORMULA 1 TABLET PO SCH (08:53)
[2017-01-20] MEDS: GABAPENTIN 100 MG CAPSULE PO SCH ×3 (08:53→19:48)
[2017-01-20] MEDS: PIPERACILLIN/TAZO/PMX 2.25GM 50 ML IV SCH ×2 (08:54→20:09)
[2017-01-20] MEDS: SODIUM BICARBONATE 650 MG TABLET PO SCH ×2 (08:54→19:48)
[2017-01-20] MEDS: SODIUM CHLORIDE FLUSH 10ML SYR IVF SCH ×2 (08:54→19:48)
[2017-01-20] MEDS ORDERED: ERGOCALCIFEROL 50,000 UNIT CAPSULE PO SCH (11:00)
[2017-01-20] MEDS: PROPOFOL 100 ML IV PRN (16:07)
[2017-01-20] MEDS ORDERED: VANCOMYCIN PMX 1GM/200ML 200 ML IVPB ONE (18:00)
[2017-01-20] MEDS: ATORVASTATIN 80 MG TABLET PO SCH (19:49)
[2017-01-20] MEDS: MORPHINE SULFATE 4 MG/ML, 1ML IVPush PRN (21:54)
[2017-01-21] MEDS: SODIUM CHLORIDE 0.9% 1,000 ML IV SCH ×2 (01:45→16:30)
[2017-01-21] MEDS: PROPOFOL 100 ML IV PRN ×2 (01:51→16:48)
[2017-01-21] MEDS: ALBUTEROL/IPRATROPIUM 2.5MG/0.5MG, 3 ML NPPB SCH ×6 (02:00→22:00)
[2017-01-21 04:30] LABS: ABG COLLECTION SITE RIGHT BRACHIAL
[2017-01-21 04:39] LABS: BLOOD UREA NITROGEN 25 mg/dL (7-18)
[2017-01-21] MEDS: LEVOTHYROXINE 100 MCG TABLET PO SCH (06:18)
[2017-01-21] MEDS: PANTOPRAZOLE 40 MG IV IVP SCH (07:30)
[2017-01-21] MEDS: PIPERACILLIN/TAZO/PMX 2.25GM 50 ML IV SCH ×2 (11:30→21:00)
[2017-01-21] MEDS: MUPIROCIN OINT 2%, 22GM TP SCH (11:30)
[2017-01-21] MEDS: THIAMINE 100MG TABLET PO SCH (11:31)
[2017-01-21] MEDS: SODIUM CHLORIDE FLUSH 10ML SYR IVF SCH ×2 (11:31→21:00)
[2017-01-21] MEDS: SODIUM BICARBONATE 650 MG TABLET PO SCH ×2 (11:31→21:00)
[2017-01-21] MEDS: MULTIVITS,STRESS FORMULA 1 TABLET PO SCH (11:31)
[2017-01-21] MEDS: FERROUS SULFATE 220 MG/5 ML ORAL SOL PO SCH ×3 (11:31→16:47)
[2017-01-21] MEDS: FOLIC ACID 1 MG TABLET PO SCH (11:32)
[2017-01-21] MEDS: GABAPENTIN 100 MG CAPSULE PO SCH ×3 (11:32→21:00)
[2017-01-21] MEDS: PANCRELIPASE 24,000 CAPSULE.DR PO SCH ×3 (11:32→16:47)
[2017-01-21] MEDS: NOREPINEPHRINE 8 MG in SODIUM CHLORIDE 0.9% 242 ML IV PRN (19:35)
[2017-01-21] MEDS: ATORVASTATIN 80 MG TABLET PO SCH (20:59)
[2017-01-21] MEDS ORDERED: VANCOMYCIN PMX 1GM/200ML 200 ML IVPB ONE (22:00)
[2017-01-22] MEDS: ALBUTEROL/IPRATROPIUM 2.5MG/0.5MG, 3 ML NPPB SCH ×7 (02:00→22:34)
[2017-01-22] MEDS: MORPHINE SULFATE 4 MG/ML, 1ML IVPush PRN (02:04)
[2017-01-22] MEDS ORDERED: NOREPINEPHRINE 1 MG/ML, 4ML ONE (03:25)
[2017-01-22] MEDS: NOREPINEPHRINE 8 MG in SODIUM CHLORIDE 0.9% 242 ML IV PRN ×2 (03:35→10:22)
[2017-01-22 04:05] LABS: BLOOD UREA NITROGEN 12 mg/dL (7-18)
[2017-01-22 04:37] LABS: ABG COLLECTION SITE RIGHT RADIAL; COLLATERAL CIRCULATION TESTING NORMAL
[2017-01-22 04:50] LABS: DIFF TOTAL CELLS COUNTED 100 CELL DIFF
[2017-01-22 04:54] LABS: VERIFY COUNTS? YES
[2017-01-22 04:55] LABS: ANISOCYTOSIS 1+; HYPOCHROMIA 1+; POLYCHROMASIA 1+
[2017-01-22 04:56] LABS: OVALOCYTES 1+; STOMATOCYTES 1+
[2017-01-22 04:57] LABS: SCHISTOCYTES 1+
[2017-01-22] MEDS: LEVOTHYROXINE 100 MCG TABLET PO SCH (06:17)
[2017-01-22] MEDS: PROPOFOL 100 ML IV PRN (06:36)
[2017-01-22] MEDS ORDERED: CEFTRIAXONE PMX 1GM/50ML 50 ML IV SCH (07:00)
[2017-01-22] MEDS ORDERED: MIDAZOLAM HCL 25 MG in SODIUM CHLORIDE 0.9% 245 ML IV PRN (10:00)
[2017-01-22] MEDS: THIAMINE 100MG TABLET PO SCH (10:15)
[2017-01-22] MEDS: PANCRELIPASE 24,000 CAPSULE.DR PO SCH ×3 (10:15→17:00)
[2017-01-22] MEDS: MULTIVITS,STRESS FORMULA 1 TABLET PO SCH (10:15)
[2017-01-22] MEDS: FOLIC ACID 1 MG TABLET PO SCH (10:15)
[2017-01-22] MEDS: GABAPENTIN 100 MG CAPSULE PO SCH ×3 (10:15→23:28)
[2017-01-22] MEDS: PANTOPRAZOLE 40 MG IV IVP SCH (10:15)
[2017-01-22] MEDS: SODIUM CHLORIDE FLUSH 10ML SYR IVF SCH ×2 (10:15→21:56)
[2017-01-22] MEDS: FERROUS SULFATE 220 MG/5 ML ORAL SOL PO SCH ×3 (10:15→17:00)
[2017-01-22] MEDS: MUPIROCIN OINT 2%, 22GM TP SCH (10:16)
[2017-01-22] MEDS: SODIUM CHLORIDE 0.9% 1,000 ML IV SCH (12:30)
[2017-01-22] MEDS ORDERED: OMNIPAQUE 350 MG/ML, 100ML BOTTLE ONE ×2 (15:45→20:42)
[2017-01-22] MEDS ORDERED: ERGOCALCIFEROL 50,000 UNIT CAPSULE PO SCH (20:00)
[2017-01-22] MEDS: CEFTAROLINE 300 MG in SODIUM CHLORIDE 0.9% 100 ML IV SCH (20:49)
[2017-01-22] MEDS: ATORVASTATIN 80 MG TABLET PO SCH (23:27)
[2017-01-23] MEDS: NOREPINEPHRINE 8 MG in SODIUM CHLORIDE 0.9% 242 ML IV PRN ×4 (00:20→22:22)
[2017-01-23 04:36] LABS: ABG COLLECTION SITE RIGHT RADIAL; COLLATERAL CIRCULATION TESTING NORMAL
[2017-01-23] MEDS: ALBUTEROL/IPRATROPIUM 2.5MG/0.5MG, 3 ML NPPB SCH ×5 (06:00→22:00)
[2017-01-23] MEDS: LEVOTHYROXINE 100 MCG TABLET PO SCH (06:13)
[2017-01-23] MEDS: CEFTAROLINE 300 MG in SODIUM CHLORIDE 0.9% 100 ML IV SCH ×2 (06:13→18:10)
[2017-01-23 06:38] LABS: BLOOD UREA NITROGEN 16 mg/dL (7-18)
[2017-01-23] MEDS: PANTOPRAZOLE 40 MG IV IVP SCH (07:30)
[2017-01-23] MEDS: FERROUS SULFATE 220 MG/5 ML ORAL SOL PO SCH ×3 (08:00→13:08)
[2017-01-23] MEDS: PANCRELIPASE 24,000 CAPSULE.DR PO SCH ×3 (08:00→13:08)
[2017-01-23 08:25] LABS: DIFF TOTAL CELLS COUNTED 100 CELL DIFF
[2017-01-23 08:29] LABS: ANISOCYTOSIS 1+; HYPOCHROMIA 1+; OVALOCYTES 1+; POLYCHROMASIA 1+; VERIFY COUNTS? YES
[2017-01-23 08:30] LABS: SCHISTOCYTES 1+
[2017-01-23] MEDS: SODIUM CHLORIDE 0.9% 1,000 ML IV SCH (08:30)
[2017-01-23 08:31] LABS: POIKILOCYTOSIS 1+
[2017-01-23] MEDS: GABAPENTIN 100 MG CAPSULE PO SCH ×3 (09:00→20:21)
[2017-01-23] MEDS: SODIUM CHLORIDE FLUSH 10ML SYR IVF SCH ×2 (09:00→20:18)
[2017-01-23] MEDS: MUPIROCIN OINT 2%, 22GM TP SCH (09:00)
[2017-01-23] MEDS: MULTIVITS,STRESS FORMULA 1 TABLET PO SCH (09:00)
[2017-01-23] MEDS: FOLIC ACID 1 MG TABLET PO SCH (09:00)
[2017-01-23] MEDS: THIAMINE 100MG TABLET PO SCH (09:00)
[2017-01-23] MEDS ORDERED: PNEUMOC 13-VALENT VACC, 0.5 ML IM-VACC ONE (15:00)
[2017-01-23] MEDS: METOCLOPRAMIDE 5 MG/ML, 2ML IVPush SCH (20:17)
[2017-01-23] MEDS: ATORVASTATIN 80 MG TABLET PO SCH (20:21)
[2017-01-24] MEDS: ALBUTEROL/IPRATROPIUM 2.5MG/0.5MG, 3 ML NPPB SCH ×6 (02:00→21:48)
[2017-01-24] MEDS: NOREPINEPHRINE 8 MG in SODIUM CHLORIDE 0.9% 242 ML IV PRN ×4 (03:54→22:07)
[2017-01-24 04:30] LABS: BLOOD UREA NITROGEN 24 mg/dL (7-18)
[2017-01-24 04:49] LABS: ABG COLLECTION SITE LEFT RADIAL
[2017-01-24 05:36] LABS: DIFF TOTAL CELLS COUNTED 100 CELL DIFF
[2017-01-24 05:38] LABS: ANISOCYTOSIS 1+; HYPOCHROMIA 1+; POLYCHROMASIA 1+; VERIFY COUNTS? YES
[2017-01-24 05:39] LABS: OVALOCYTES 1+; POIKILOCYTOSIS 1+
[2017-01-24] MEDS: LEVOTHYROXINE 100 MCG TABLET PO SCH (05:55)
[2017-01-24] MEDS: CEFTAROLINE 300 MG in SODIUM CHLORIDE 0.9% 100 ML IV SCH ×2 (05:55→20:15)
[2017-01-24] MEDS: METOCLOPRAMIDE 5 MG/ML, 2ML IVPush SCH ×3 (05:55→22:12)
[2017-01-24] MEDS: VASOPRESSIN 100 UNIT in SODIUM CHLORIDE 0.9% 495 ML IV PRN (06:31)
[2017-01-24 06:55] LABS: COLLATERAL CIRCULATION TESTING NORMAL
[2017-01-24] MEDS: PANCRELIPASE 24,000 CAPSULE.DR PO SCH ×3 (08:00→17:00)
[2017-01-24] MEDS: FERROUS SULFATE 220 MG/5 ML ORAL SOL PO SCH ×3 (08:00→17:00)
[2017-01-24] MEDS: GABAPENTIN 100 MG CAPSULE PO SCH ×3 (09:00→21:00)
[2017-01-24] MEDS: FOLIC ACID 1 MG TABLET PO SCH (09:00)
[2017-01-24] MEDS: MUPIROCIN OINT 2%, 22GM TP SCH (09:00)
[2017-01-24] MEDS: SODIUM CHLORIDE FLUSH 10ML SYR IVF SCH ×2 (09:00→22:11)
[2017-01-24] MEDS: MULTIVITS,STRESS FORMULA 1 TABLET PO SCH (09:00)
[2017-01-24] MEDS: THIAMINE 100MG TABLET PO SCH (09:00)
[2017-01-24] MEDS: PANTOPRAZOLE 40 MG IV IVP SCH (13:18)
[2017-01-24] MEDS: SODIUM CHLORIDE 0.9% 1,000 ML IV SCH (15:52)
[2017-01-24] MEDS: ATORVASTATIN 80 MG TABLET PO SCH (21:00)
[2017-01-24] MEDS: ACETAMINOPHEN 650 MG SUPP PR PRN (22:07)
[2017-01-25] VITALS (8 sets, daily range): BP systolic 85–121; BP diastolic 46–71
[2017-01-25] MEDS: ALBUTEROL/IPRATROPIUM 2.5MG/0.5MG, 3 ML NPPB SCH ×6 (02:25→22:46)
[2017-01-25 04:25] LABS: ABG COLLECTION SITE RIGHT RADIAL; COLLATERAL CIRCULATION TESTING NORMAL
[2017-01-25 04:45] LABS: BLOOD UREA NITROGEN 33 mg/dL (7-18)
[2017-01-25] MEDS: LEVOTHYROXINE 100 MCG TABLET PO SCH (06:00)
[2017-01-25] MEDS: METOCLOPRAMIDE 5 MG/ML, 2ML IVPush SCH ×3 (06:18→21:00)
[2017-01-25] MEDS: NOREPINEPHRINE 8 MG in SODIUM CHLORIDE 0.9% 242 ML IV PRN ×4 (06:18→19:48)
[2017-01-25] MEDS: CEFTAROLINE 300 MG in SODIUM CHLORIDE 0.9% 100 ML IV SCH ×2 (06:19→18:06)
[2017-01-25 06:20] LABS: DIFF TOTAL CELLS COUNTED 100 CELL DIFF
[2017-01-25 06:29] LABS: ANISOCYTOSIS 2+; HYPOCHROMIA 1+; MICROCYTOSIS 1+; OVALOCYTES 1+; POIKILOCYTOSIS 1+; VERIFY COUNTS? YES
[2017-01-25] MEDS: FERROUS SULFATE 220 MG/5 ML ORAL SOL PO SCH (08:00)
[2017-01-25] MEDS: PANCRELIPASE 24,000 CAPSULE.DR PO SCH (08:00)
[2017-01-25] MEDS: MUPIROCIN OINT 2%, 22GM TP SCH (09:00)
[2017-01-25] MEDS ORDERED: TPN PER PHARMACY MC PRN (09:00)
[2017-01-25] MEDS ORDERED: SODIUM CHLORIDE 0.9% 1,000 ML IV SCH (10:00)
[2017-01-25] MEDS: PANTOPRAZOLE 40 MG IV IVP SCH (10:06)
[2017-01-25] MEDS: LEVOTHYROXINE 100 MCG INJ IVPush SCH (10:52)
[2017-01-25] MEDS: SODIUM CHLORIDE FLUSH 10ML SYR IVF SCH ×2 (10:52→19:49)
[2017-01-25] MEDS ORDERED: PHENYLEPHRINE 10 MG/ML ONE ×2 (11:09→11:11)
[2017-01-25] MEDS: PHENYLEPHRINE 20 MG in SODIUM CHLORIDE 0.9% 248 ML IV PRN ×4 (11:43→19:49)
[2017-01-25] MEDS ORDERED: AMINO ACID 10% IV SCH (17:00)
[2017-01-25] MEDS ORDERED: FAT EMULSIONS IV SCH (17:00)
[2017-01-25] MEDS ORDERED: DEXTROSE 70% IV SCH (17:00)
[2017-01-25] MEDS ORDERED: DEXTROSE 10% 500 ML IV PRN (17:00)
[2017-01-25] MEDS ORDERED: [UNRECOGNIZED DRUG - OTHER] IV SCH (17:00)
[2017-01-25 17:03] LABS: PPD INJECT PLACED
[2017-01-25] MEDS: VASOPRESSIN 100 UNIT in SODIUM CHLORIDE 0.9% 495 ML IV PRN (19:48)
[2017-01-25] MEDS: INSULIN REGULAR MEDIUM DOSE Q6H X 48HRS SQ-INSULIN SCH (21:00)
[2017-01-26] MEDS: NOREPINEPHRINE 8 MG in SODIUM CHLORIDE 0.9% 242 ML IV PRN ×5 (00:29→23:43)
[2017-01-26] MEDS: ALBUTEROL/IPRATROPIUM 2.5MG/0.5MG, 3 ML NPPB SCH ×6 (01:58→22:00)
[2017-01-26] MEDS: INSULIN REGULAR MEDIUM DOSE Q6H X 48HRS SQ-INSULIN SCH ×3 (02:58→19:08)
[2017-01-26 04:28] LABS: ABG COLLECTION SITE ARTERIAL LINE
[2017-01-26] MEDS: METOCLOPRAMIDE 5 MG/ML, 2ML IVPush SCH ×3 (04:57→23:42)
[2017-01-26 05:00] LABS: BLOOD UREA NITROGEN 29 mg/dL (7-18)
[2017-01-26 05:18] LABS: ASPARTATE AMINO TRANSFERASE 231 U/L (15-37)
[2017-01-26 05:40] LABS: DIFF TOTAL CELLS COUNTED 100 CELL DIFF
[2017-01-26 05:42] LABS: VERIFY COUNTS? YES
[2017-01-26 05:43] LABS: ANISOCYTOSIS 1+; POLYCHROMASIA 1+
[2017-01-26 05:45] LABS: HYPOCHROMIA 1+
[2017-01-26] MEDS: CEFTAROLINE 300 MG in SODIUM CHLORIDE 0.9% 100 ML IV SCH ×2 (05:57→19:03)
[2017-01-26] MEDS: PANTOPRAZOLE 40 MG IV IVP SCH (09:35)
[2017-01-26] MEDS: SODIUM CHLORIDE FLUSH 10ML SYR IVF SCH ×2 (09:35→21:25)
[2017-01-26] MEDS: LEVOTHYROXINE 100 MCG INJ IVPush SCH (09:36)
[2017-01-26] MEDS: MUPIROCIN OINT 2%, 22GM TP SCH (09:36)
[2017-01-26] MEDS: ACETAMINOPHEN 650 MG SUPP PR PRN (09:40)
[2017-01-26] MEDS: DARBEPOETIN 100 MCG/ML SQ SCH (14:31)
[2017-01-26] MEDS ORDERED: DEXTROSE 70% IV SCH (17:00)
[2017-01-26] MEDS ORDERED: [UNRECOGNIZED DRUG - OTHER] IV SCH (17:00)
[2017-01-26] MEDS ORDERED: AMINO ACID 10% IV SCH (17:00)
[2017-01-26] MEDS ORDERED: FAT EMULSIONS IV SCH (17:00)
[2017-01-26] MEDS: FILTER, DISP 1.2 MICRON FOR TPN/PVN IV PRN (18:48)
[2017-01-27] MEDS: INSULIN REGULAR MEDIUM DOSE Q6H X 48HRS SQ-INSULIN SCH ×2 (01:50→07:42)
[2017-01-27] MEDS: ALBUTEROL/IPRATROPIUM 2.5MG/0.5MG, 3 ML NPPB SCH ×6 (02:00→22:16)
[2017-01-27] MEDS: MORPHINE SULFATE 4 MG/ML, 1ML IVPush PRN ×3 (04:47→21:21)
[2017-01-27 05:20] LABS: ABG COLLECTION SITE ARTERIAL LINE
[2017-01-27 05:42] LABS: BLOOD UREA NITROGEN 43 mg/dL (7-18)
[2017-01-27 05:54] LABS: DIFF TOTAL CELLS COUNTED 100 CELL DIFF
[2017-01-27 05:56] LABS: ANISOCYTOSIS 1+; VERIFY COUNTS? YES
[2017-01-27 05:57] LABS: POLYCHROMASIA 1+
[2017-01-27] MEDS: METOCLOPRAMIDE 5 MG/ML, 2ML IVPush SCH ×3 (06:10→21:02)
[2017-01-27] MEDS: CEFTAROLINE 300 MG in SODIUM CHLORIDE 0.9% 100 ML IV SCH ×2 (06:10→18:41)
[2017-01-27] MEDS: NOREPINEPHRINE 8 MG in SODIUM CHLORIDE 0.9% 242 ML IV PRN ×3 (06:10→17:21)
[2017-01-27] MEDS: PANTOPRAZOLE 40 MG IV IVP SCH (07:33)
[2017-01-27] MEDS: LEVOTHYROXINE 100 MCG INJ IVPush SCH (07:37)
[2017-01-27] MEDS: SODIUM CHLORIDE FLUSH 10ML SYR IVF SCH ×2 (07:38→21:02)
[2017-01-27] MEDS: MUPIROCIN OINT 2%, 22GM TP SCH (08:05)
[2017-01-27] MEDS: [UNRECOGNIZED DRUG - OTHER] SQ-INSULIN SCH ×3 (10:29→21:17)
[2017-01-27] MEDS ORDERED: AMINO ACID 10% IV SCH (17:00)
[2017-01-27] MEDS ORDERED: DEXTROSE 70% IV SCH (17:00)
[2017-01-27] MEDS ORDERED: FAT EMULSIONS IV SCH (17:00)
[2017-01-27] MEDS ORDERED: [UNRECOGNIZED DRUG - OTHER] IV SCH (17:00)
[2017-01-27 17:59] LABS: TUBERCULIN 48 HOUR READ 0 mm (< 5)
[2017-01-27] MEDS ORDERED: INSULIN REGULAR MEDIUM DOSE QDAY SQ-INSULIN SCH (21:00)
[2017-01-28] MEDS: ALBUTEROL/IPRATROPIUM 2.5MG/0.5MG, 3 ML NPPB SCH ×6 (02:25→22:43)
[2017-01-28] MEDS: NOREPINEPHRINE 8 MG in SODIUM CHLORIDE 0.9% 242 ML IV PRN ×2 (02:38→12:57)
[2017-01-28] MEDS: [UNRECOGNIZED DRUG - OTHER] SQ-INSULIN SCH ×4 (02:40→22:02)
[2017-01-28 05:37] LABS: ABG COLLECTION SITE LEFT RADIAL; COLLATERAL CIRCULATION TESTING NORMAL
[2017-01-28 05:53] LABS: BLOOD UREA NITROGEN 58 mg/dL (7-18)
[2017-01-28 06:02] LABS: DIFF TOTAL CELLS COUNTED 100 CELL DIFF
[2017-01-28 06:04] LABS: VERIFY COUNTS? YES
[2017-01-28 06:05] LABS: ANISOCYTOSIS 1+; POLYCHROMASIA 1+
[2017-01-28] MEDS: METOCLOPRAMIDE 5 MG/ML, 2ML IVPush SCH ×3 (06:19→22:00)
[2017-01-28] MEDS: CEFTAROLINE 300 MG in SODIUM CHLORIDE 0.9% 100 ML IV SCH (06:19)
[2017-01-28] MEDS: PANTOPRAZOLE 40 MG IV IVP SCH (07:58)
[2017-01-28] MEDS: SODIUM CHLORIDE FLUSH 10ML SYR IVF SCH ×2 (07:59→22:03)
[2017-01-28] MEDS: LEVOTHYROXINE 100 MCG INJ IVPush SCH (07:59)
[2017-01-28] MEDS: MUPIROCIN OINT 2%, 22GM TP SCH (11:04)
[2017-01-28] MEDS: INSULIN DETEMIR 100 UNITS/ML, PEN SQ-INSULIN SCH (11:04)
[2017-01-28 12:16] LABS: TUBERCULIN 72 HOUR READ 0 mm (< 5)
[2017-01-28] MEDS: MORPHINE SULFATE 4 MG/ML, 1ML IVPush PRN (16:40)
[2017-01-28] MEDS ORDERED: [UNRECOGNIZED DRUG - OTHER] IV SCH (17:00)
[2017-01-28] MEDS ORDERED: AMINO ACID 10% IV SCH (17:00)
[2017-01-28] MEDS ORDERED: FAT EMULSIONS IV SCH (17:00)
[2017-01-28] MEDS ORDERED: DEXTROSE 70% IV SCH (17:00)
[2017-01-28] MEDS: CEFTAROLINE 200 MG in SODIUM CHLORIDE 0.9% 100 ML IV SCH (18:40)
[2017-01-28] MEDS ORDERED: CATHFLO-ALTEPLASE 2 MG/2 ML CATHFLUSH ONE (21:00)
[2017-01-29] MEDS: MORPHINE SULFATE 4 MG/ML, 1ML IVPush PRN ×2 (00:02→21:35)
[2017-01-29] MEDS: LORazepam 1MG TABLET PO PRN (00:02)
[2017-01-29] MEDS ORDERED: CATHFLO-ALTEPLASE 2 MG/2 ML CATHFLUSH ONE (00:30)
[2017-01-29] MEDS: LIDOCAINE-MPF 1%, 2ML ENDO PRN (00:43)
[2017-01-29] MEDS: ALBUTEROL/IPRATROPIUM 2.5MG/0.5MG, 3 ML NPPB SCH ×6 (02:22→22:38)
[2017-01-29 04:28] LABS: BLOOD UREA NITROGEN 69 mg/dL (7-18)
[2017-01-29 04:39] LABS: ABG COLLECTION SITE LEFT BRACHIAL
[2017-01-29] MEDS: [UNRECOGNIZED DRUG - OTHER] SQ-INSULIN SCH ×3 (04:50→15:03)
[2017-01-29 05:39] LABS: DIFF TOTAL CELLS COUNTED 100 CELL DIFF
[2017-01-29 05:41] LABS: ANISOCYTOSIS 1+; POLYCHROMASIA 1+; VERIFY COUNTS? YES
[2017-01-29] MEDS: CEFTAROLINE 200 MG in SODIUM CHLORIDE 0.9% 100 ML IV SCH ×2 (06:06→18:28)
[2017-01-29] MEDS: METOCLOPRAMIDE 5 MG/ML, 2ML IVPush SCH ×3 (06:06→21:20)
[2017-01-29] MEDS: NOREPINEPHRINE 8 MG in SODIUM CHLORIDE 0.9% 242 ML IV PRN ×3 (06:07→21:12)
[2017-01-29] MEDS: PANTOPRAZOLE 40 MG IV IVP SCH (08:22)
[2017-01-29] MEDS: MUPIROCIN OINT 2%, 22GM TP SCH (08:27)
[2017-01-29] MEDS: LEVOTHYROXINE 100 MCG INJ IVPush SCH (08:27)
[2017-01-29] MEDS: SODIUM CHLORIDE FLUSH 10ML SYR IVF SCH ×2 (08:28→21:22)
[2017-01-29] MEDS: INSULIN DETEMIR 100 UNITS/ML, PEN SQ-INSULIN SCH ×2 (08:32→20:25)
[2017-01-29] MEDS ORDERED: AMINO ACID 10% IV SCH (17:00)
[2017-01-29] MEDS ORDERED: [UNRECOGNIZED DRUG - OTHER] IV SCH (17:00)
[2017-01-29] MEDS ORDERED: FAT EMULSIONS IV SCH (17:00)
[2017-01-29] MEDS ORDERED: DEXTROSE 70% IV SCH (17:00)
[2017-01-29] MEDS: [UNRECOGNIZED DRUG - OTHER] SQ-INSULIN SCH (21:19)
[2017-01-30] MEDS: ALBUTEROL/IPRATROPIUM 2.5MG/0.5MG, 3 ML NPPB SCH ×7 (02:21→23:05)
[2017-01-30] MEDS: MORPHINE SULFATE 4 MG/ML, 1ML IVPush PRN (03:42)
[2017-01-30] MEDS: [UNRECOGNIZED DRUG - OTHER] SQ-INSULIN SCH ×4 (03:45→20:39)
[2017-01-30 03:56] LABS: BLOOD UREA NITROGEN 83 mg/dL (7-18)
[2017-01-30 04:14] LABS: DIFF TOTAL CELLS COUNTED 100 CELL DIFF
[2017-01-30 04:16] LABS: ANISOCYTOSIS 1+; POLYCHROMASIA 1+; VERIFY COUNTS? YES
[2017-01-30 04:22] LABS: ABG COLLECTION SITE RIGHT RADIAL; COLLATERAL CIRCULATION TESTING NORMAL
[2017-01-30] MEDS: NOREPINEPHRINE 8 MG in SODIUM CHLORIDE 0.9% 242 ML IV PRN ×3 (05:05→19:20)
[2017-01-30] MEDS: CEFTAROLINE 200 MG in SODIUM CHLORIDE 0.9% 100 ML IV SCH ×2 (06:14→18:22)
[2017-01-30] MEDS: METOCLOPRAMIDE 5 MG/ML, 2ML IVPush SCH ×3 (06:14→20:40)
[2017-01-30] MEDS: LEVOTHYROXINE 100 MCG INJ IVPush SCH (07:37)
[2017-01-30] MEDS: SODIUM CHLORIDE FLUSH 10ML SYR IVF SCH ×2 (07:37→20:38)
[2017-01-30] MEDS: INSULIN DETEMIR 100 UNITS/ML, PEN SQ-INSULIN SCH ×2 (07:37→20:37)
[2017-01-30] MEDS: PANTOPRAZOLE 40 MG IV IVP SCH (07:37)
[2017-01-30] MEDS: MUPIROCIN OINT 2%, 22GM TP SCH (07:38)
[2017-01-30] MEDS ORDERED: FAT EMULSIONS IV SCH (17:00)
[2017-01-30] MEDS ORDERED: AMINO ACID 10% IV SCH (17:00)
[2017-01-30] MEDS ORDERED: [UNRECOGNIZED DRUG - OTHER] IV SCH (17:00)
[2017-01-30] MEDS ORDERED: DEXTROSE 70% IV SCH (17:00)
[2017-01-31] MEDS: ALBUTEROL/IPRATROPIUM 2.5MG/0.5MG, 3 ML NPPB SCH ×5 (02:26→22:20)
[2017-01-31] MEDS: NOREPINEPHRINE 8 MG in SODIUM CHLORIDE 0.9% 242 ML IV PRN ×3 (02:36→20:07)
[2017-01-31] MEDS ORDERED: SODIUM BICARBONATE 1 MEQ/ML, 50ML VIAL IVPush ONE (03:00)
[2017-01-31] MEDS: [UNRECOGNIZED DRUG - OTHER] SQ-INSULIN SCH ×4 (03:36→21:05)
[2017-01-31 03:58] LABS: ASPARTATE AMINO TRANSFERASE 166 U/L (15-37); BLOOD UREA NITROGEN 97 mg/dL (7-18)
[2017-01-31 04:47] LABS: ABG COLLECTION SITE LEFT RADIAL; COLLATERAL CIRCULATION TESTING NORMAL
[2017-01-31] MEDS: CEFTAROLINE 200 MG in SODIUM CHLORIDE 0.9% 100 ML IV SCH ×2 (06:01→20:07)
[2017-01-31] MEDS: METOCLOPRAMIDE 5 MG/ML, 2ML IVPush SCH ×3 (06:01→21:08)
[2017-01-31] MEDS: LEVOTHYROXINE 100 MCG INJ IVPush SCH (08:44)
[2017-01-31] MEDS: SODIUM CHLORIDE FLUSH 10ML SYR IVF SCH ×2 (08:44→21:07)
[2017-01-31] MEDS: INSULIN DETEMIR 100 UNITS/ML, PEN SQ-INSULIN SCH ×2 (08:45→21:06)
[2017-01-31] MEDS: PANTOPRAZOLE 40 MG IV IVP SCH (09:05)
[2017-01-31] MEDS: MUPIROCIN OINT 2%, 22GM TP SCH (09:06)
[2017-01-31] MEDS ORDERED: ALBUMIN HUMAN 25% 100 ML IV PRN (15:30)
[2017-01-31] MEDS ORDERED: ALBUMIN HUMAN 25% 50 ML IV PRN (15:30)
[2017-01-31] MEDS ORDERED: AMINO ACID 10% IV SCH (17:00)
[2017-01-31] MEDS ORDERED: FAT EMULSIONS IV SCH (17:00)
[2017-01-31] MEDS ORDERED: [UNRECOGNIZED DRUG - OTHER] IV SCH (17:00)
[2017-01-31] MEDS ORDERED: DEXTROSE 70% IV SCH (17:00)
[2017-01-31 17:08] VITALS: BP 72/44
[2017-01-31] MEDS: HYDROCORTISONE 100 MG INJ. IVPush SCH (17:13)
[2017-01-31] MEDS: VASOPRESSIN 100 UNIT in SODIUM CHLORIDE 0.9% 495 ML IV PRN (17:14)
[2017-01-31 17:22] VITALS: BP 72/42
[2017-01-31 17:27] VITALS: BP 72/42
[2017-01-31 17:36] VITALS: BP 93/51
[2017-01-31] MEDS: FILTER, DISP 1.2 MICRON FOR TPN/PVN IV PRN (17:37)
[2017-01-31 17:50] VITALS: BP 101/50
[2017-01-31 18:03] VITALS: BP 102/54
[2017-01-31] MEDS: LIDOCAINE-MPF 1%, 2ML ENDO PRN (23:40)
[2017-01-31] MEDS: MORPHINE SULFATE 4 MG/ML, 1ML IVPush PRN (23:54)
[2017-02-01] MEDS: ALBUTEROL/IPRATROPIUM 2.5MG/0.5MG, 3 ML NPPB SCH ×6 (01:45→22:15)
[2017-02-01] MEDS: NOREPINEPHRINE 8 MG in SODIUM CHLORIDE 0.9% 242 ML IV PRN ×2 (02:22→22:57)
[2017-02-01] MEDS: HYDROCORTISONE 100 MG INJ. IVPush SCH ×3 (02:25→17:42)
[2017-02-01] MEDS: [UNRECOGNIZED DRUG - OTHER] SQ-INSULIN SCH ×4 (03:00→22:56)
[2017-02-01 04:29] LABS: BLOOD UREA NITROGEN 66 mg/dL (7-18)
[2017-02-01 04:47] LABS: ABG COLLECTION SITE RIGHT RADIAL; COLLATERAL CIRCULATION TESTING NORMAL
[2017-02-01] MEDS: CEFTAROLINE 200 MG in SODIUM CHLORIDE 0.9% 100 ML IV SCH ×2 (05:33→18:30)
[2017-02-01] MEDS: METOCLOPRAMIDE 5 MG/ML, 2ML IVPush SCH ×3 (05:34→22:56)
[2017-02-01] MEDS: PANTOPRAZOLE 40 MG IV IVP SCH (08:14)
[2017-02-01] MEDS: LEVOTHYROXINE 100 MCG INJ IVPush SCH (08:15)
[2017-02-01] MEDS: SODIUM CHLORIDE FLUSH 10ML SYR IVF SCH ×2 (08:15→21:00)
[2017-02-01] MEDS: MUPIROCIN OINT 2%, 22GM TP SCH (08:15)
[2017-02-01] MEDS: INSULIN DETEMIR 100 UNITS/ML, PEN SQ-INSULIN SCH ×2 (08:26→22:55)
[2017-02-01] MEDS ORDERED: FAT EMULSIONS IV SCH ×2 (17:00)
[2017-02-01] MEDS ORDERED: [UNRECOGNIZED DRUG - OTHER] IV SCH (17:00)
[2017-02-01] MEDS ORDERED: [UNRECOGNIZED DRUG - OTHER] IV SCH (17:00)
[2017-02-01] MEDS ORDERED: AMINO ACID 10% IV SCH ×2 (17:00)
[2017-02-01] MEDS ORDERED: DEXTROSE 70% IV SCH ×2 (17:00)
[2017-02-01] MEDS: FILTER, DISP 1.2 MICRON FOR TPN/PVN IV PRN (17:43)
[2017-02-02] MEDS: HYDROCORTISONE 100 MG INJ. IVPush SCH ×3 (01:22→17:01)
[2017-02-02] MEDS: ALBUTEROL/IPRATROPIUM 2.5MG/0.5MG, 3 ML NPPB SCH ×6 (02:30→22:00)
[2017-02-02 04:43] LABS: ABG COLLECTION SITE LEFT RADIAL; COLLATERAL CIRCULATION TESTING NORMAL
[2017-02-02 04:57] LABS: BLOOD UREA NITROGEN 92 mg/dL (7-18)
[2017-02-02] MEDS: [UNRECOGNIZED DRUG - OTHER] SQ-INSULIN SCH (05:35)
[2017-02-02] MEDS: METOCLOPRAMIDE 5 MG/ML, 2ML IVPush SCH ×3 (05:35→20:44)
[2017-02-02] MEDS: CEFTAROLINE 200 MG in SODIUM CHLORIDE 0.9% 100 ML IV SCH ×2 (05:36→18:28)
[2017-02-02] MEDS: INSULIN DETEMIR 100 UNITS/ML, PEN SQ-INSULIN SCH ×2 (08:30→20:40)
[2017-02-02] MEDS: PANTOPRAZOLE 40 MG IV IVP SCH (09:05)
[2017-02-02] MEDS: INSULIN REGULAR HIGH DOSE Q6H X 48HRS SQ-INSULIN SCH ×3 (09:06→20:41)
[2017-02-02] MEDS: SODIUM CHLORIDE FLUSH 10ML SYR IVF SCH ×2 (09:06→20:41)
[2017-02-02] MEDS: LEVOTHYROXINE 100 MCG INJ IVPush SCH (09:06)
[2017-02-02] MEDS: MUPIROCIN OINT 2%, 22GM TP SCH (09:07)
[2017-02-02] MEDS ORDERED: DARBEPOETIN 100 MCG/ML SQ SCH (12:06)
[2017-02-02] MEDS ORDERED: FAT EMULSIONS IV SCH (17:00)
[2017-02-02] MEDS ORDERED: [UNRECOGNIZED DRUG - OTHER] IV SCH (17:00)
[2017-02-02] MEDS ORDERED: AMINO ACID 10% IV SCH (17:00)
[2017-02-02] MEDS ORDERED: DEXTROSE 70% IV SCH (17:00)
[2017-02-03] MEDS: ALBUTEROL/IPRATROPIUM 2.5MG/0.5MG, 3 ML NPPB SCH ×2 (02:00→06:00)
[2017-02-03] MEDS: HYDROCORTISONE 100 MG INJ. IVPush SCH ×2 (02:44→07:53)
[2017-02-03] MEDS: METOCLOPRAMIDE 5 MG/ML, 2ML IVPush SCH (04:57)
[2017-02-03] MEDS: INSULIN REGULAR HIGH DOSE Q6H X 48HRS SQ-INSULIN SCH ×2 (04:57→07:54)
[2017-02-03 05:11] LABS: ABG COLLECTION SITE LEFT RADIAL; COLLATERAL CIRCULATION TESTING NORMAL
[2017-02-03 05:51] LABS: BLOOD UREA NITROGEN 112 mg/dL (7-18)
[2017-02-03] MEDS: CEFTAROLINE 200 MG in SODIUM CHLORIDE 0.9% 100 ML IV SCH (06:04)
[2017-02-03] MEDS: SODIUM CHLORIDE FLUSH 10ML SYR IVF SCH (07:53)
[2017-02-03] MEDS: INSULIN DETEMIR 100 UNITS/ML, PEN SQ-INSULIN SCH (07:53)
[2017-02-03] MEDS: PANTOPRAZOLE 40 MG IV IVP SCH (07:53)
[2017-02-03] MEDS: LEVOTHYROXINE 100 MCG INJ IVPush SCH (07:53)
[2017-02-03] MEDS: MUPIROCIN OINT 2%, 22GM TP SCH (07:54)
[2017-02-03] MEDS ORDERED: LORazepam 2 MG/ML, 1ML ONE (10:18)
[2017-02-03] MEDS: MORPHINE SULFATE 4 MG/ML, 1ML IVPush PRN (10:33)
[2017-02-03] MEDS ORDERED: LORazepam 2 MG/ML, 1ML IVPush ONE ×2 (10:35→11:00)
[2017-02-03] MEDS ORDERED: LORazepam 2 MG/ML, 1ML IV PRN (11:00)
[2017-02-03] MEDS ORDERED: morphine SULFATE 10 MG/ML, 1ML IV ONE (11:00)
[2017-02-03] MEDS ORDERED: ATROPINE OPHTH SOLN 1%, 2ML PO PRN (11:00)
[2017-02-03] MEDS ORDERED: LORazepam 2 MG/ML, 1ML IV ONE (11:00)
[2017-02-03] MEDS ORDERED: FAT EMULSIONS IV SCH (17:00)
[2017-02-03] MEDS ORDERED: AMINO ACID 10% IV SCH (17:00)
[2017-02-03] MEDS ORDERED: DEXTROSE 70% IV SCH (17:00)
[2017-02-03] MEDS ORDERED: [UNRECOGNIZED DRUG - OTHER] IV SCH (17:00)
== END 2017-02-03 15:05 | disposition expired | DRG 314 ==
LOC: ED 19:20 → EDIP 19:37 → CCU 19:50
PROVIDERS: ADMIT Internal Medicine; ATTEND Internal Medicine
PROC: 02HV33Z Insertion of Infusion Device into Superior Vena Cava, Percutaneous Approach (ICD-10-PCS; principal; 2017-01-18)
PROC: B548ZZA Ultrasonography of Superior Vena Cava, Guidance (ICD-10-PCS; 2017-01-18)
PROC: 0T9B70Z Drainage of Bladder with Drainage Device, Via Natural or Artificial Opening (ICD-10-PCS; 2017-01-18)
PROC: 5A1D60Z (ICD-10-PCS; 2017-01-19)
PROC: 5A1955Z Respiratory Ventilation, Greater than 96 Consecutive Hours (ICD-10-PCS; 2017-01-19)
PROC: 0BH17EZ Insertion of Endotracheal Airway into Trachea, Via Natural or Artificial Opening (ICD-10-PCS; 2017-01-19)
PROC: 30233L1 Transfusion of Nonautologous Fresh Plasma into Peripheral Vein, Percutaneous Approach (ICD-10-PCS; 2017-01-25)
PROC: 30233N1 Transfusion of Nonautologous Red Blood Cells into Peripheral Vein, Percutaneous Approach (ICD-10-PCS; 2017-01-25)
PROC: 30233K1 Transfusion of Nonautologous Frozen Plasma into Peripheral Vein, Percutaneous Approach (ICD-10-PCS; 2017-01-25)
PROC: 02HV33Z Insertion of Infusion Device into Superior Vena Cava, Percutaneous Approach (ICD-10-PCS; 2017-01-31)
PROC: B548ZZA Ultrasonography of Superior Vena Cava, Guidance (ICD-10-PCS; 2017-01-31)
DX: T82.7XXA Infection and inflammatory reaction due to other cardiac and vascular devices, implants and grafts, initial encounter (principal); N18.6 End stage renal disease; E43 Unspecified severe protein-calorie malnutrition; R65.21 Severe sepsis with septic shock; J96.01 Acute respiratory failure with hypoxia; A41.02 Sepsis due to Methicillin resistant Staphylococcus aureus; J15.211 Pneumonia due to Methicillin susceptible Staphylococcus aureus; J15.5 Pneumonia due to Escherichia coli; G93.41 Metabolic encephalopathy; J81.0 Acute pulmonary edema; D68.9 Coagulation defect, unspecified; Z99.11 Dependence on respirator [ventilator] status; L03.113 Cellulitis of right upper limb; L03.116 Cellulitis of left lower limb; I12.0 Hypertensive chronic kidney disease with stage 5 chronic kidney disease or end stage renal disease; N17.9 Acute kidney failure, unspecified; E11.22 Type 2 diabetes mellitus with diabetic chronic kidney disease; Z66 Do not resuscitate; E55.9 Vitamin D deficiency, unspecified; K86.89 Other specified diseases of pancreas; D69.59 Other secondary thrombocytopenia; D50.9 Iron deficiency anemia, unspecified; E03.9 Hypothyroidism, unspecified; Z51.5 Encounter for palliative care; K70.30 Alcoholic cirrhosis of liver without ascites; D63.8 Anemia in other chronic diseases classified elsewhere; N25.0 Renal osteodystrophy; I95.3 Hypotension of hemodialysis; K21.9 Gastro-esophageal reflux disease without esophagitis; K70.10 Alcoholic hepatitis without ascites; E11.621 Type 2 diabetes mellitus with foot ulcer; E11.40 Type 2 diabetes mellitus with diabetic neuropathy, unspecified; L97.519 Non-pressure chronic ulcer of other part of right foot with unspecified severity; E11.51 Type 2 diabetes mellitus with diabetic peripheral angiopathy without gangrene; Y92.89 Other specified places as the place of occurrence of the external cause; Z83.3 Family history of diabetes mellitus; Z82.49 Family history of ischemic heart disease and other diseases of the circulatory system; Z89.431 Acquired absence of right foot; Z89.512 Acquired absence of left leg below knee; Z99.2 Dependence on renal dialysis; Z86.14 Personal history of Methicillin resistant Staphylococcus aureus infection; Z87.440 Personal history of urinary (tract) infections; Z87.01 Personal history of pneumonia (recurrent); Z87.891 Personal history of nicotine dependence; Z68.33 Body mass index [BMI] 33.0-33.9, adult
CPT/HCPCS: 36415; 36556; 36558; 36589; 36600; 70450; 71010; 74000; 74177; 76937; 77001; 80048; 80053; 80061; 80202; 81003; 82010; 82140; 82306; 82533; 82728; 82803; 82947; 82962; 83036; 83540; 83550; 83605; 83690; 83735; 83880; 83970; 84100; 84134; 84145; 84439; 84443; 84478; 84484; 85025; 85610; 85730; 86480; 86580; 86850; 86900; 86923; 87040; 87070; 87077; 87081; 87147; 87186; 87205; 87324; 93005; 93306; 94002; 94003; 94640; 96361; 96365; 96367; 96368; J0295; J0610; J0696; J0712; J0881; J1815; J2250; J2543; J2704; J2997; J3370; J3411; J3475; J3490; J7620; P9047; Q9967; C1751; C9113; G0009; J1642; J1720; J2060; J2370; J2765; J3420; J7030; J7040; J7050; P9016; P9017